=== PATIENT | female | born 1970 | race Caucasian/White ===

== ENCOUNTER → 2016-07-01 | Outpatient (CLI) | payer OTHER ==
--- NOTE | 2016-07-02 08:38 | WOMENS IMAGING REPORT ---
EXAM DESCRIPTION: BILAT SCREENING MAMMO W/CAD COMPLETED DATE/TIME: 07/01/2016 9:39 am REASON FOR STUDY: Z12.31 ROUTINE SCREENING MAMMO Z12.31 ENCNTR SCREEN MAMMOGRAM FOR MALIGNANT NEOPL ASM OF PREETHI COMPARISON: Multiple since 2010 TECHNIQUE: Standard craniocaudal and mediolateral oblique views of each breast recorded using 1006.tva l acquisition. LIMITATIONS: None. FINDINGS: No masses, calcifications or architectural distortion. No areas of suspicion. Read with the assistance of CAD. .[facility] - R2 Cenova Version 1.3 .[facility] - R2 Cenova Version 1.3 .[facility] - R2 Cenova Version 2.4 .[facility] [place] - R2 Cenova Version 2.4 .[facility] - R2 Forging Operator Version 9.2 BREAST DENSITY: c. The breasts are heterogeneously dense, which may obscure small masses. BIRAD: 1 NEGATIVE RECOMMENDATION: ROUTINE SCREENING COMMENT: PATIENT NOTIFIED BY LETTER. The [employer] recommends an annual screening mammogram for women aged 40 years or over. Each patient will receive a reminder prior to the anniversary date of her mammogram. The [employer] (ACR) has developed recommendations for screening MRI of the breast s in certain patient populations, to be used in conjunction with mammography. Breast MRI surveillanc e may be appropriate for women with more than 20% lifetime risk of developing breast cancer as deter mined by genetic testing, significant family history of the disease, or history of mantle radiation f or Hodgkins Disease. ACR Practice Guidelines 2008. TECHNICAL DOCUMENTATION: FINDING NUMBER: (1) ASSESSMENT: (1) JOB ID: [id number]- All Rights Reserved
== END ==
LOC: WI 09:04
PROVIDERS: ATTEND Obstetrics & Gynecology Gynecology
DX: Z12.31 Encounter for screening mammogram for malignant neoplasm of breast (principal)
CPT/HCPCS: 77067; G0202

== ENCOUNTER → 2017-07-02 | Outpatient (CLI) | payer OTHER ==
--- NOTE | 2017-07-03 07:47 | WOMENS IMAGING REPORT ---
EXAM DESCRIPTION: 3D SCREENING MAMMO BILAT COMPLETED DATE/TIME: 07/02/2017 10:05 am REASON FOR STUDY: ROUTINE SCREENING; Z12.31 Z12.31 ENCNTR SCREEN MAMMOGRAM FOR MALIGNANT NEOPLASM O F PREETHI COMPARISON: Multiple since 2010 TECHNIQUE: Standard craniocaudal and mediolateral oblique views of each breast recorded using digita l acquisition and breast tomosynthesis. LIMITATIONS: None. FINDINGS: No masses, calcifications or architectural distortion. No areas of suspicion. Read with the assistance of CAD. .[facility] - R2 Cenova Version 1.3 .[facility] Imaging - R2 Cenova Version 1.3 .[facility] - R2 Cenova Version 2.4 .[facility] R2 Cenova Version 2.4 .[facility] - R2 Casting Machine Operator Automatic Version 9.2 IMPRESSION: NORMAL MAMMOGRAM. BIRADS 1. BREAST DENSITY: c. The breasts are heterogeneously dense, which may obscure small masses. BIRAD: 1 NEGATIVE RECOMMENDATION: ROUTINE SCREENING COMMENT: The patient has been notified of the results by letter per SA requirements. Additional no tification policies are in place for contacting patient with suspicious or incomplete findings. Quality ID #[id number]: The [employer] recommends an annual screening mammogram for women aged 40 years or over. This facility utilizes a reminder system to ensure that all patients receive reminder letters, and/or direct phone calls for appointments. This includes reminders for routine scr eening mammograms, diagnostic mammograms, or other Breast Imaging Interventions when appropriate. Th is patient will be placed in the appropriate reminder system. The [employer] (ACR) has developed recommendations for screening MRI of the breast s in certain patient populations, to be used in conjunction with mammography. Breast MRI surveillanc e may be appropriate for women with more than 20% lifetime risk of developing breast cancer as deter mined by genetic testing, significant family history of the disease, or history of mantle radiation f or Hodgkins Disease. ACR Practice Guidelines 2008. DBT Technology DBT is a type of tomographic mammography. With conventional mammography, overlapping breast tissue ma y make lesions difficult to detect, even with good compression. DBT uses an x-ray tube that rotates a round the breast, taking images at different angles. These images are then combined to create thin sl ices of the breast that the radiologist can view as a 3D reconstruction. The [employer] unit can perform full-field digital mammograms (2D imaging); or DBT (3D imaging); or both, in a combination mode that quickly performs both the mammogram and the tomosynthesis scan while the breast is still compressed. PQRS 6045F: Fluoroscopic imaging is not utilized for breast tomosynthesis. TECHNICAL DOCUMENTATION: FINDING NUMBER: (1) ASSESSMENT: (1) JOB ID: [id number] [employer]- All Rights Reserved
== END ==
LOC: WI 09:48
PROVIDERS: ATTEND Obstetrics & Gynecology Gynecology
DX: Z12.31 Encounter for screening mammogram for malignant neoplasm of breast (principal)
CPT/HCPCS: 77063; 77067

== ENCOUNTER 2019-03-12 03:54 | Inpatient (IN) | payer OTHER ==
[2019-03-12] MEDS ORDERED: ONDANSETRON HCL INJ/PF 4 MG/2 ML SDV ONE ×2 (05:00→06:52)
[2019-03-12] MEDS ORDERED: DEXAMETHASONE SOD PHOSPHATE INJ 4 MG/1 ML VIAL ONE (05:00)
[2019-03-12] MEDS ORDERED: NEOSTIGMINE METHYLSULFATE 10 MG/10 ML VIAL ONE (05:00)
[2019-03-12] MEDS ORDERED: ROCURONIUM BROMIDE INJ 50 MG/5 ML VIAL IV ONE (05:00)
[2019-03-12] MEDS ORDERED: GLYCOPYRROLATE INJ 0.4 MG/2 ML VIAL ONE (05:00)
[2019-03-12] MEDS ORDERED: METOCLOPRAMIDE HCL INJ/PF 10 MG/2 ML SDV ONE (05:00)
[2019-03-12] MEDS ORDERED: SUCCINYLCHOLINE CHLORIDE INJ 200 MG/10 ML VIAL ONE (05:00)
[2019-03-12 05:15] LABS: APPEARANCE,URINE TURBID; BILIRUBIN,URINE NEGATIVE (NEGATIVE); COLOR,URINE AMBER; GLUCOSE, URINE NEGATIVE (NEGATIVE); KETONES,URINE 80 mg/dL (NEGATIVE); LEUKOCYTE ESTERASE,URINE NEGATIVE (NEGATIVE); NITRITE,URINE NEGATIVE (NEGATIVE); PROTEIN,URINE NEGATIVE (NEGATIVE); URINE SPECIFIC GRAVITY 1.025
[2019-03-12 05:36] LABS: HEMOGLOBIN 14.3 g/dL (12.0-15.5); MEAN CORPUSCULAR HEMOGLOBIN 28.7 pg (27.0-33.4); MEAN CORPUSCULAR HGB CONC 33.3 g/dL (32.0-36.0); MEAN CORPUSCULAR VOLUME 86 fl (80-97); PLATELET COUNT 294 10^3/uL (150-450); RED BLOOD COUNT 4.99 10^6/uL (3.72-5.28); RED CELL DISTRIBUTION WIDTH 13.9 % (11.5-14.0)
[2019-03-12 05:51] LABS: ALBUMIN 4.7 g/dL (3.5-5.0); ALKALINE PHOSPHATASE 97 U/L (38-126); ANION GAP 13 (5-19); ASPARTATE AMINO TRANSFERASE 23 U/L (14-36); BILIRUBIN,DIRECT 0.3 mg/dL (0.0-0.4); BILIRUBIN,TOTAL 0.7 mg/dL (0.2-1.3); BLOOD UREA NITROGEN 8 mg/dL (7-20); CARBON DIOXIDE 22 mmol/L (22-30); CHLORIDE 101 mmol/L (98-107); GLUCOSE 132 mg/dL (75-110); TOTAL PROTEIN 8.5 g/dL (6.3-8.2)
[2019-03-12 06:20] LABS: ABSOLUTE LYMPHOCYTES# (MANUAL) 3.4 10^3/uL (0.5-4.7); ABSOLUTE MONOCYTES # (MANUAL) 0.4 10^3/uL (0.1-1.4); BASOPHILS % (MANUAL) 0 % (0-2); EOSINOPHILS % (MANUAL) 0 % (0-6); LYMPHOCYTES % (MANUAL) 16 % (13-45); MONOCYTES % (MANUAL) 2 % (3-13); SEGMENTED NEUTROPHILS % (MAN) 81 % (42-78); TOTAL CELLS COUNTED 100
[2019-03-12 06:21] LABS: PLATELET COMMENT ADEQUATE; PLATELET LARGE PRESENT
--- NOTE | 2019-03-12 06:21 | ER Document Report ---
ED General - General Chief Complaint: Abdominal Pain Stated Complaint: ABDOMINAL PAIN Time Seen by Provider: 03/12/19 06:21 Primary Care Provider: TYSHAWN NASH FNP [Primary Care Provider] - Follow up as needed TRAVEL OUTSIDE OF THE [place] IN LAST 30 DAYS: No - HPI Patient complains to provider of: Abdominal Pain Notes: Normally healthy 49-year-old female presents with 10/10 umbilical pain starting about 2 days ago getting worse and worse. Pain is no radiation nothing makes it better or worse. Patient denies any emesis is mildly nauseous from the pain. Patient had a normal bowel movement yesterday which is normal for her. Patient denies any trauma to her abdomen, fever chills or cough. Patient has decreased oral intake today secondary to pain and not feeling well. Denies any sick contacts. - Related Data Allergies/Adverse Reactions: No Known Allergies Allergy (Unverified 03/12/19 06:50) Past Medical History - Social History Smoking Status: Never Smoker Chew tobacco use (# tins/day): No Frequency of alcohol use: None Drug Abuse: Marijuana Family History: None Patient has suicidal ideation: No Patient has homicidal ideation: No Review of Systems - Review of Systems Notes: REVIEW OF SYSTEMS: CONSTITUTIONAL: -fevers, -chills EENT: -eye pain, -difficulty swallowing, -nasal congestion CARDIOVASCULAR: -chest pain, -syncope. RESPIRATORY: -cough, -SOB GASTROINTESTINAL: positve abdominal pain, positive nausea, -vomiting, -diarrhea GENITOURINARY: -dysuria, -hematuria MUSCULOSKELETAL: -back pain, -neck pain SKIN: -rash or skin lesions. HEMATOLOGIC: -easy bruising or bleeding. LYMPHATIC: -swollen, enlarged glands. NEUROLOGICAL: -altered mental status or loss of consciousness, -headache, - neurologic symptoms PSYCHIATRIC: -anxiety, -depression. ALL OTHER SYSTEMS REVIEWED AND NEGATIVE. Physical Exam - Notes Notes: PHYSICAL EXAMINATION: GENERAL: Well-appearing, well-nourished and in no acute distress. HEAD: Atraumatic, normocephalic. EYES: Pupils equal round and reactive to light, extraocular movements intact, sclera anicteric, conjunctiva are normal. ENT: nares patent, oropharynx clear without exudates. Moist mucous membranes. NECK: Normal range of motion, supple without lymphadenopathy LUNGS: Breath sounds clear to auscultation bilaterally and equal. No wheezes rales or rhonchi. HEART: Regular rate and rhythm without murmurs ABDOMEN: Diffusely tender abdomen. focal tenderness RLQ Normal bowel sounds. EXTREMITIES: Normal range of motion, no pitting or edema. No cyanosis. NEUROLOGICAL: Cranial nerves grossly intact. Normal speech, normal gait. Normal sensory and motor exams. PSYCH: Normal mood, normal affect. SKIN: Warm, Dry, normal turgor, no rashes or lesions noted. Course - Re-evaluation Re-evalutation: 03/12/19 08:30 49-year-old female presents in severe acute distress with lower abdominal pain. Patient generally sore throat lower abdomen. Patient has profound leukocytosis. Patient given ample fluid resuscitation and multiple rounds of IV opioid pain medicine. Antiemetics. Patient's CAT scan abdomen pelvis finds acute appendicitis with a enlarged appendix. No perforation noted. Prescription results were called to me by james quintanilla. Patient started on broad-spectrum antibiotics. Consult surgery. Patient will be admitted to the hospital for further management. - Laboratory Result Diagrams: 03/12/19 05:14 03/12/19 05:14 Laboratory results interpreted by me: 03/12/19 03/12/19 03/12/19 04:04 05:14 05:14 WBC 20.0 H Seg Neuts % (Manual) 81 H Monocytes % (Manual) 2 L Abs Neuts (Manual) 16.2 H Sodium 136.0 L Glucose 132 H Total Protein 8.5 H Urine Ketones 80 H Urine Urobilinogen 4.0 H Discharge - Discharge Clinical Impression: Appendicitis Qualifiers: Appendicitis type: acute appendicitis Acute appendicitis type: with localized peritonitis Appendicitis gangrene presence: without gangrene Appendicitis perforation presence: without perforation Appendicitis abscess presence: without abscess Qualified Code(s): K35.30 - Acute appendicitis with localized peritonitis, without perforation or gangrene Condition: Serious Disposition: ADMITTED INPATIENT Admitting Provider: Surgicalist Unit Admitted: Surgical Floor Referrals: TYSHAWN NASH FNP [Primary Care Provider] - Follow up as needed
[2019-03-12] MEDS ORDERED: NORMAL SALINE 1000 ML 1,000 ML IV ONE (06:25)
[2019-03-12] MEDS ORDERED: HYDROMORPHONE HCL INJ/PF 2 MG/ML AMPULE IV ONE ×3 (06:25→17:00)
[2019-03-12] MEDS ORDERED: ONDANSETRON HCL INJ/PF 4 MG/2 ML SDV IV ONE (06:52)
[2019-03-12] MEDS ORDERED: METRONIDAZOLE RTU 500 MG/NS 100 ML IV ONE (08:25)
--- NOTE | 2019-03-12 08:36 | RADIOLOGY REPORT (SQ) ---
EXAM DESCRIPTION: CT ABD/PELVIS WITH IV ONLY COMPLETED DATE/TIME: 03/12/2019 8:15 am REASON FOR STUDY: abdominal pain after moving furniture on friday and friday COMPARISON: None. TECHNIQUE: CT scan of the abdomen and pelvis performed using helical scanning technique with dynamic intravenous contrast injection. No oral contrast. Images reviewed with lung, soft tissue, and bone windows. Reconstructed coronal and sagittal MPR images reviewed. Delayed images for evaluation of the urinary system also acquired. All images stored on PACS. All CT scanners at this facility use dose modulation, iterative reconstruction, and/or weight based d osing when appropriate to reduce radiation dose to as low as reasonably achievable (ALARA). [facility]: Dose Right [facility]: CareDose [facility]: Dose Right [facility]: Teradose 4D [facility]: REach CONTRAST TYPE AND DOSE: contrast/concentration: Isovue 350.00 mg/ml; Total Contrast Delivered: 90.0 ml; Total Saline Delivered: 60.4 ml RENAL FUNCTION: None required. The patient is less than 50 years old. RADIATION DOSE: CT Rad equipment meets quality standard of care and radiation dose reduction techniq ues were employed. CTDIvol: 8.7 - 12.3 mGy. DLP: 1126 mGy-cm.. LIMITATIONS: None. FINDINGS: LOWER CHEST: No significant findings. No nodules or infiltrates. LIVER: Normal size. No masses. No dilated ducts. SPLEEN: Normal size. No focal lesions. PANCREAS: No masses. No significant calcifications. No adjacent inflammation or peripancreatic fluid collections. Pancreatic duct not dilated. GALLBLADDER: No identified stones by CT criteria. No inflammatory changes to suggest cholecystitis. ADRENAL GLANDS: No significant masses or asymmetry. RIGHT KIDNEY AND URETER: No solid masses. No significant calcifications. No hydronephrosis or hyd roureter. LEFT KIDNEY AND URETER: No solid masses. No significant calcifications. No hydronephrosis or hydr oureter. AORTA AND VESSELS: No aneurysm. No dissection. Renal arteries, SMA, celiac without stenosis. RETROPERITONEUM: No retroperitoneal adenopathy, hemorrhage or masses. BOWEL AND PERITONEAL CAVITY: No evidence of intestinal obstruction. . Cecal inflammatory change and dilated appendix as below. No additional focal bowel wall thickening. APPENDIX: The appendix is dilated measuring up to 1.4 cm (series 3, image 70). There is small amount of periappendiceal fluid and adjacent fatty stranding. There is a appendicolith at the base of the appendix (series 3, image 62). PELVIS: No mass. No free fluid. Normal bladder. ABDOMINAL WALL: No masses. No hernias. BONES: No significant or acute findings. OTHER: No acute bony abnormality. No suspicious osseous lesions. IMPRESSION: Findings compatible with acute appendicitis. No carleen perforation although appendix is markedly dilated (1.4 cm) with small amount of para appendiceal fluid. Pertinent positive or negative findings of the imaging study reported as a CRITICAL EXAM to PRATIMA BACH DO at08:22 on 03/12/2019. Category of Critical Exam: Acute appendicitis TECHNICAL DOCUMENTATION: JOB ID: [id number] Quality ID # [id number]: Final reports with documentation of one or more dose reduction techniques (e.g., Au tomated exposure control, adjustment of the mA and/or kV according to patient size, use of iterative reconstruction technique) 2010 [employer]- All Rights Reserved Reading location - IP/workstation name: [email or web address]
[2019-03-12] MEDS ORDERED: CEFEPIME 2 GM/D5W RTU 2 GM/50 ML RTUPB IV SCH (10:00)
[2019-03-12] MEDS: MORPHINE SULFATE 10 MG/ML INJ IV PRN ×3 (12:03→19:34)
[2019-03-12] MEDS: ONDANSETRON 4 MG TAB.RAPDIS PO PRN (12:03)
--- NOTE | 2019-03-12 13:55 | PDOC H&P ---
History of Present Illness Admission Date/PCP: 03/12/19 08:38 KATHY BANSAL History of Present Illness: ALMITA EDOUARD is a 49 year old female presents with 03/11 umbilical pain star ting about 2 days ago getting worse and worse. Pain is no radiation nothing makes it better or worse. Patient denies any emesis is mildly nauseous from the pain. Patient had a normal bowel movement yesterday which is normal for her. Patient denies any trauma to her abdomen, fever chills or cough. Patient has decreased oral intake today secondary to pain and not feeling well. Denies any sick contacts. Social History Smoking Status: Never Smoker Electronic Cigarette use?: No - Advance Directive Resuscitation Status: Full Code Family History Family History: None Parental Family History Reviewed: No Children Family History Reviewed: NA Sibling(s) Family History Reviewed.: NA Medication/Allergy Home Medications: Levonorgestrel-Ethin Estradiol [Larissia-28 Tablet] 1 tab PO DAILY 03/12/19 Nadolol [Corgard 40 mg Tablet] 40 mg PO DAILY 03/12/19 Omeprazole 20 mg PO DAILY 03/12/19 Allergies/Adverse Reactions: No Known Allergies Allergy (Unverified 03/12/19 06:50) Review of Systems Constitutional: PRESENT: anorexia Eyes: ABSENT: as per HPI, visual disturbances, other Ears: ABSENT: as per HPI, hearing changes, other Nose, Mouth, and Throat: ABSENT: as per HPI, headache(s), mouth pain, sore throat, vertigo, other Breasts: ABSENT: as per HPI, other Cardiovascular: ABSENT: as per HPI, chest pain, dyspnea on exertion, edema, orthropnea, palpitations, other Respiratory: ABSENT: as per HPI, cough, dyspnea, hemoptysis, sputum, other Genitourinary: PRESENT: as per HPI Integumentary: ABSENT: as per HPI, diaphoresis, erythema, lesions, pruritus, kris h, wounds, other Neurological: ABSENT: as per HPI, abnormal gait, abnormal movements, abnormal speech, confusion, convulsions, dizziness, focal weakness, frequent falls, lack of coordination, memory loss, numbness, paresthesias, restless legs, syncope, tingling, tremor(s), vertigo, weakness, other Psychiatric: ABSENT: as per HPI, anxiety, depression, hallucinations, homidical ideation, suicidal ideation, other Endocrine: ABSENT: as per HPI, cold intolerance, flushing, heat intolerance, menstrual abnormalities, polydipsia, polyphagia, polyuria, other Hematologic/Lymphatic: ABSENT: as per HPI, easy bleeding, easy bruising, lymphadenopathy, other Allergic/Immunologic: ABSENT: as per HPI, seasonal rhinorrhea, other Physical Exam Vital Signs: Temp Pulse Resp BP Pulse Ox 97.2 F 68 16 129/77 H 99 03/12/19 10:28 03/12/19 10:28 03/12/19 10:28 03/12/19 10:28 03/12/19 10:28 Intake & Output 03/11/19 03/12/19 03/13/19 06:59 06:59 06:59 Intake Total 1050 Balance 1050 Weight 77.3 kg General appearance: PRESENT: mild distress Head exam: PRESENT: normocephalic Eye exam: PRESENT: EOMI Ear exam: PRESENT: normal external ear exam Mouth exam: PRESENT: moist Neck exam: PRESENT: full ROM Respiratory exam: PRESENT: clear to auscultation berta Cardiovascular exam: PRESENT: RRR Pulses: PRESENT: +2 pedal pulses bilateral GI/Abdominal exam: PRESENT: guarding - in rlq, rebound, other Rectal exam: PRESENT: deferred Extremities exam: PRESENT: full ROM Musculoskeletal exam: PRESENT: full ROM Neurological exam: PRESENT: alert, awake, oriented to person, oriented to place Psychiatric exam: PRESENT: anxious Skin exam: PRESENT: dry Results Laboratory Results: 03/12/19 05:14 03/12/19 05:14 03/12/19 03/12/19 03/12/19 04:04 05:14 05:14 WBC 20.0 H RBC 4.99 Hgb 14.3 Hct 43.0 MCV 86 MCH 28.7 MCHC 33.3 RDW 13.9 Plt Count 294 Seg Neutrophils % Not Reportable Sodium 136.0 L Potassium 4.0 Chloride 101 Carbon Dioxide 22 Anion Gap 13 BUN 8 Creatinine 0.54 Est GFR ( Amer) > 60 Glucose 132 H Calcium 10.0 Total Bilirubin 0.7 AST 23 Alkaline Phosphatase 97 Total Protein 8.5 H Albumin 4.7 Lipase 69.3 Urine Color BRAD Urine Appearance TURBID Urine pH 5.0 Ur Specific [place] 1.025 Urine Protein NEGATIVE Urine Glucose (UA) NEGATIVE Urine Ketones 80 H Urine Blood NEGATIVE Urine Nitrite NEGATIVE Ur Leukocyte Esterase NEGATIVE Urine WBC (Auto) 4 Impressions: Abdomen/Pelvis CT 03/12/19 06:25 IMPRESSION: Findings compatible with acute appendicitis. No carleen perforation although appendix is markedly dilated (1.4 cm) with small amount of para appendiceal fluid. Pertinent positive or negative findings of the imaging study reported as a CRITICAL EXAM to PRATIMA BACH DO at08:22 on 03/12/2019. Category of Critical Exam: Acute appendicitis Assessment & Plan - Inpatient Certification Medical Necessity: Need For IV Fluids, Need for Surgery - Plan Summary Plan Summary: acute appendicitis iwth poss early perforation plan admit for iv abx and surgery risks of laparosocpic appendectomy discussed with pt incluilding injury to adacent organs, infection need for additional surgery mi, stroke, pneumonia, poss related to surgery or anesthesia discussed and she agrees to proceed.
[2019-03-12] MEDS: POTASSI CL 20 MEQ/1/2NS 1L 1000 ML IV PRN (14:15)
[2019-03-12] MEDS: ONDANSETRON HCL INJ/PF 4 MG/2 ML SDV IV PRN (16:06)
[2019-03-12] MEDS ORDERED: BUPIVACAINE HCL 0.5%-EPI 1:200000 INJ/PF 30 ML VIAL ONE (19:00)
[2019-03-12] MEDS: CEFEPIME 2 GM/D5W RTU 2 GM/50 ML RTUPB IV SCH (22:00)
[2019-03-12] MEDS ORDERED: FENTANYL CITRATE INJ/PF 100 MCG/2 ML AMPUL ONE (22:53)
[2019-03-12] MEDS ORDERED: MIDAZOLAM 2 MG/2 ML INJ ONE (22:54)
[2019-03-12] MEDS ORDERED: PROPOFOL INJ 200 MG/20 ML VIAL IV ONE (22:54)
[2019-03-12] MEDS ORDERED: PROMETHAZINE HCL INJ 25 MG/1 ML VIAL ONE (23:07)
[2019-03-13] MEDS ORDERED: DIPHENHYDRAMINE HCL 50 MG/ML VIAL IV PRN (00:57)
[2019-03-13] MEDS ORDERED: MEPERIDINE HCL/PF INJ 25 MG/1 ML DISP.SYRIN IV PRN (00:57)
[2019-03-13] MEDS ORDERED: FENTANYL CITRATE INJ/PF 100 MCG/2 ML AMPUL IV PRN ×3 (00:57)
[2019-03-13] MEDS ORDERED: PROMETHAZINE HCL INJ 25 MG/1 ML VIAL IV PRN ×2 (00:57)
[2019-03-13] MEDS ORDERED: MORPHINE SULFATE 10 MG/ML INJ IV PRN (00:57)
[2019-03-13] MEDS ORDERED: BUPIVACAINE HCL 0.5%-EPI 1:200000 INJ/PF 30 ML VIAL INJ ONE (01:39)
--- NOTE | 2019-03-13 02:08 | Operative Report ---
Nonrecallable Operative Report DATE OF SURGERY: 03/13/19 PREOPERATIVE DIAGNOSIS: acute appendicitis POSTOPERATIVE DIAGNOSIS: perforated appendicitis OPERATION: laparoscopic appendectomy SURGEON: DASHA SCHAFFER ANESTHESIA: GA TISSUE REMOVED OR ALTERED: appendix COMPLICATIONS: none ESTIMATED BLOOD LOSS: 10cc INTRAOPERATIVE FINDINGS: perforated feculent appendicitis PROCEDURE: Patient was brought to the operating room awake alert in stable condition placed in the operative table supine position induced under general anesthesia and intubated After appropriate timeout and site verification the varies needle was placed into the umbilicus and the abdomen was insufflated with 6 L of CO2 gas a supraumbilical 5 mm cyst was made with a 15 blade and a 5 mm port placed in the abdominal cavity intra-abdominal visualization revealed no evidence of Veress needle or trocar injury left lower quadrant 12 mm port was placed under direct vision and left-sided 5 mm port also under direct vision visualization of the right lower quadrant revealed multiple small bowel loops adhesed to the anterior abdominal wall with fibrinous exudate there is also a number of small bowel loops adherent to the cecum as well as the appendix that was adherent to the right lateral wall with fibrinous exudate and obvious stool leakage from a perforation. We first suctioned free of all the peritoneal soilage and the pelvic fluid then irrigated copiously with normal saline in the pelvis in the right lower quadrant. We then gently mobilized the small bowel away from the anterior abdominal wall, it easily fell away. We then able to deliver the appendix from the right lateral abdominal wall with blunt dissection lifted up and identified the mesoappendix. There is stool leaking from the base of the appendix on the cecum. We came across the mesoappendix with one firing of the Endo ELIZABETH stapler with a vascular that came across the base the appendix on the cecum with one firing the Endo ELIZABETH stapler with a blue load. Staple line was checked for integrity manipulated the cecum was compressed to see if there is any leak from the staple line there was none. The appendix was placed in Endobag and removed to the left lower quadrant port site the right lower quadrant and pelvis were copiously irrigated with normal saline suctioned dry when we had good evidence of clear fluid fluid and there was no further cloudy peritoneal fluid, the hemostasis was intact we then reduce the pneumoperitoneum remove the ports but closed the 10 mm fascial defect in the left lower quadrant with 0 Vicryl in the fashion and closed all 3 skin incisions with intracuticular 4-0 Monocryl Steri-Strips completed the procedure estimated blood loss was less than 10 cc sponge needle counts were correct x2 the patient was then awakened in the operating explained transferred recovery stable condition no complications.
[2019-03-13] MEDS: POTASSI CL 20 MEQ/1/2NS 1L 1000 ML IV PRN ×3 (02:59→21:02)
[2019-03-13] MEDS: MORPHINE SULFATE 10 MG/ML INJ IV PRN ×4 (03:12→10:36)
[2019-03-13] MEDS: CEFEPIME 2 GM/D5W RTU 2 GM/50 ML RTUPB IV SCH ×2 (10:24→21:09)
[2019-03-13] MEDS: HYDROMORPHONE HCL INJ/PF 2 MG/ML AMPULE IV PRN ×2 (12:58→21:07)
[2019-03-13] MEDS: KETOROLAC TROMETHAMINE INJ/PF 30 MG/1 ML SDV IV SCH ×2 (13:30→21:05)
[2019-03-13] MEDS: ACETAMINOPHEN 1,000 MG/100 ML RTUPB IV PRN (13:31)
[2019-03-13] MEDS: ONDANSETRON HCL INJ/PF 4 MG/2 ML SDV IV PRN (17:35)
--- NOTE | 2019-03-13 17:51 | PDOC PROGRESS REPORT ---
Subjective Progress Note for:: 03/13/19 Reason For Visit: APPENDICITIS Physical Exam Vital Signs: Temp Pulse Resp BP Pulse Ox 99.2 F 96 17 122/79 95 03/13/19 11:55 03/13/19 11:55 03/13/19 11:55 03/13/19 11:55 03/13/19 11:55 Intake & Output 03/12/19 03/13/19 03/14/19 06:59 06:59 06:59 Intake Total 1200 2210 50 Output Total 100 Balance 1200 2110 50 Weight 77.2 kg Results Laboratory Results: 03/12/19 05:14 03/12/19 05:14 Impressions: Abdomen/Pelvis CT 03/12/19 06:25 IMPRESSION: Findings compatible with acute appendicitis. No carleen perforation although appendix is markedly dilated (1.4 cm) with small amount of para appendiceal fluid. Pertinent positive or negative findings of the imaging study reported as a CRITICAL EXAM to PRATIMA BACH DO at08:22 on 03/12/2019. Category of Critical Exam: Acute appendicitis Assessment & Plan - Diagnosis (1) Perforated appendicitis Is this a current diagnosis for this admission?: Yes - Time Time Spent with patient: Less than 15 minutes - Plan Summary Plan Summary: This is a 49-year-old female status post laparoscopic appendectomy for perforated appendicitis. The patient continues to complain of pain and intermittent nausea. I will add Toradol and IV acetaminophen to her medication regimen to assist with pain control. I will change her from morphine to Dilaudid in an effort to decrease the frequency of narcotic administration. The patient, per report, had a large amount of intra-abdominal contamination. Continue antibiotics until white blood cell count is normal and fevers are gone. Out of bed today. Incentive spirometer. Repeat labs tomorrow.
[2019-03-13] MEDS: FAMOTIDINE INJ/PF 20 MG/2 ML SDV IV SCH (21:05)
[2019-03-14] MEDS: ONDANSETRON HCL INJ/PF 4 MG/2 ML SDV IV PRN ×3 (01:41→15:28)
[2019-03-14 05:21] LABS: ABSOLUTE BASOPHILS # (AUTO) 0.1 10^3/uL (0.0-0.2); ABSOLUTE LYMPHOCYTES (AUTO) 1.5 10^3/uL (0.5-4.7); ABSOLUTE MONOCYTES (AUTO) 1.3 10^3/uL (0.1-1.4); ABSOLUTE NEUT (AUTO) 16.9 10^3/uL (1.7-8.2); BASOPHILS % (AUTO) 0.3 % (0-2); EOSINOPHILS % (AUTO) 0.1 % (0-6); HEMATOCRIT 38.4 % (36.0-47.0); HEMOGLOBIN 12.7 g/dL (12.0-15.5); LYMPHOCYTES % (AUTO) 7.5 % (13-45); MEAN CORPUSCULAR HEMOGLOBIN 28.5 pg (27.0-33.4); MEAN CORPUSCULAR HGB CONC 33.2 g/dL (32.0-36.0); MEAN CORPUSCULAR VOLUME 86 fl (80-97); MONOCYTES % (AUTO) 6.5 % (3-13); PLATELET COUNT 224 10^3/uL (150-450); RED BLOOD COUNT 4.47 10^6/uL (3.72-5.28); RED CELL DISTRIBUTION WIDTH 14.1 % (11.5-14.0); SEGMENTED NEUTROPHILS % (AUTO) 85.6 % (42-78); TOTAL CELLS COUNTED % (AUTO) 100 %; WHITE BLOOD COUNT 19.7 10^3/uL (4.0-10.5)
[2019-03-14 05:51] LABS: ANION GAP 11 (5-19); BLOOD UREA NITROGEN 11 mg/dL (7-20); CALCIUM 8.9 mg/dL (8.4-10.2); CARBON DIOXIDE 20 mmol/L (22-30); CHLORIDE 103 mmol/L (98-107); GLUCOSE 107 mg/dL (75-110); POTASSIUM 4.2 mmol/L (3.6-5.0)
[2019-03-14] MEDS: KETOROLAC TROMETHAMINE INJ/PF 30 MG/1 ML SDV IV SCH ×3 (06:10→21:28)
[2019-03-14] MEDS: FAMOTIDINE INJ/PF 20 MG/2 ML SDV IV SCH ×2 (09:03→21:27)
[2019-03-14] MEDS: CEFEPIME 2 GM/D5W RTU 2 GM/50 ML RTUPB IV SCH ×2 (09:04→21:28)
[2019-03-14] MEDS: HYDROMORPHONE HCL INJ/PF 2 MG/ML AMPULE IV PRN ×3 (09:11→20:07)
[2019-03-14] MEDS: ACETAMINOPHEN 1,000 MG/100 ML RTUPB IV PRN ×2 (09:15→18:40)
[2019-03-14] MEDS: POTASSI CL 20 MEQ/1/2NS 1L 1000 ML IV PRN ×2 (09:40→18:54)
[2019-03-14] MEDS ORDERED: PROMETHAZINE HCL INJ 25 MG/1 ML VIAL ONE (13:53)
[2019-03-14] MEDS: PROMETHAZINE HCL INJ 25 MG/1 ML VIAL IV PRN (18:40)
[2019-03-14] MEDS: ONDANSETRON 4 MG TAB.RAPDIS PO PRN (20:07)
--- NOTE | 2019-03-14 23:03 | PDOC PROGRESS REPORT ---
Subjective Progress Note for:: 03/14/19 Reason For Visit: APPENDICITIS Physical Exam Vital Signs: Temp Pulse Resp BP Pulse Ox 97.6 F 90 16 137/78 H 96 03/14/19 10:33 03/14/19 10:33 03/14/19 10:33 03/14/19 10:33 03/14/19 10:33 Intake & Output 03/13/19 03/14/19 03/15/19 06:59 06:59 06:59 Intake Total 2210 4103 Output Total 100 1600 Balance 2110 2503 Weight 77.2 kg 83.3 kg Results Laboratory Results: 03/14/19 05:15 03/14/19 05:15 03/14/19 03/14/19 05:15 05:15 WBC 19.7 H RBC 4.47 Hgb 12.7 Hct 38.4 MCV 86 MCH 28.5 MCHC 33.2 RDW 14.1 H Plt Count 224 Seg Neutrophils % 85.6 H Sodium 134.1 L Potassium 4.2 Chloride 103 Carbon Dioxide 20 L Anion Gap 11 BUN 11 Creatinine 0.55 Est GFR ( Amer) > 60 Glucose 107 Calcium 8.9 Impressions: Abdomen/Pelvis CT 03/12/19 06:25 IMPRESSION: Findings compatible with acute appendicitis. No carleen perforation although appendix is markedly dilated (1.4 cm) with small amount of para appe ndiceal fluid. Pertinent positive or negative findings of the imaging study reported as a CRITICAL EXAM to PRATIMA BACH DO at08:22 on 03/12/2019. Category of Critical Exam: Acute appendicitis Assessment & Plan - Diagnosis (1) Perforated appendicitis Is this a current diagnosis for this admission?: Yes - Time Time Spent with patient: 15-24 minutes - Plan Summary Plan Summary: This is a 49-year-old female status post laparoscopic appendectomy for perforated appendicitis. Her pain is better controlled. The patient continues to complain of intermittent nausea and distention. She had one episode of vomiting today. The patient, per report, had a large amount of intra-abdominal contamination. I suspect she has developed a postoperative ileus at this time. Continue antibiotics until white blood cell count is normal and fevers are gone. Out of bed today. Incentive spirometer. Repeat labs tomorrow. If the patient does not see significant improvement in the next several days, repeat CT scan may be warranted.
[2019-03-15] MEDS: PROMETHAZINE HCL INJ 25 MG/1 ML VIAL IV PRN ×4 (03:51→23:27)
[2019-03-15] MEDS: ACETAMINOPHEN 1,000 MG/100 ML RTUPB IV PRN ×3 (03:52→23:23)
[2019-03-15] MEDS: POTASSI CL 20 MEQ/1/2NS 1L 1000 ML IV PRN ×3 (03:52→22:19)
[2019-03-15 04:09] LABS: ABSOLUTE BASOPHILS # (AUTO) 0.1 10^3/uL (0.0-0.2); ABSOLUTE EOSINOPHILS # (AUTO) 0.2 10^3/uL (0.0-0.6); ABSOLUTE LYMPHOCYTES (AUTO) 1.4 10^3/uL (0.5-4.7); ABSOLUTE MONOCYTES (AUTO) 1.4 10^3/uL (0.1-1.4); ABSOLUTE NEUT (AUTO) 15.7 10^3/uL (1.7-8.2); BASOPHILS % (AUTO) 0.3 % (0-2); EOSINOPHILS % (AUTO) 1.2 % (0-6); HEMOGLOBIN 13.1 g/dL (12.0-15.5); LYMPHOCYTES % (AUTO) 7.6 % (13-45); MEAN CORPUSCULAR HEMOGLOBIN 28.3 pg (27.0-33.4); MEAN CORPUSCULAR HGB CONC 32.7 g/dL (32.0-36.0); MEAN CORPUSCULAR VOLUME 87 fl (80-97); MONOCYTES % (AUTO) 7.5 % (3-13); PLATELET COUNT 225 10^3/uL (150-450); RED BLOOD COUNT 4.62 10^6/uL (3.72-5.28); RED CELL DISTRIBUTION WIDTH 14.1 % (11.5-14.0); SEGMENTED NEUTROPHILS % (AUTO) 83.4 % (42-78); TOTAL CELLS COUNTED % (AUTO) 100 %; WHITE BLOOD COUNT 18.8 10^3/uL (4.0-10.5)
[2019-03-15 04:29] LABS: ANION GAP 11 (5-19); BLOOD UREA NITROGEN 12 mg/dL (7-20); CALCIUM 8.6 mg/dL (8.4-10.2); CARBON DIOXIDE 19 mmol/L (22-30); CHLORIDE 104 mmol/L (98-107); GLUCOSE 82 mg/dL (75-110); POTASSIUM 4.5 mmol/L (3.6-5.0)
[2019-03-15] MEDS: KETOROLAC TROMETHAMINE INJ/PF 30 MG/1 ML SDV IV SCH ×3 (05:04→22:10)
--- NOTE | 2019-03-15 09:01 | PDOC PROGRESS REPORT ---
Subjective Progress Note for:: 03/15/19 Subjective:: feels better small amts of flatus Reason For Visit: APPENDICITIS Physical Exam Vital Signs: Temp Pulse Resp BP Pulse Ox 97.8 F 89 16 122/74 96 03/15/19 07:12 03/15/19 07:12 03/15/19 07:12 03/15/19 07:12 03/15/19 07:12 Intake & Output 03/14/19 03/15/19 03/16/19 06:59 06:59 06:59 Intake Total 4103 2400 Output Total 1600 700 Balance 2503 1700 Weight 83.3 kg 84 kg General appearance: PRESENT: no acute distress Head exam: PRESENT: normocephalic Ear exam: PRESENT: normal external ear exam Mouth exam: PRESENT: moist Neck exam: PRESENT: full ROM Respiratory exam: PRESENT: accessory muscle use, clear to auscultation berta Cardiovascular exam: PRESENT: RRR Pulses: PRESENT: normal radial pulses, normal femoral pulses GI/Abdominal exam: PRESENT: soft, tenderness Rectal exam: PRESENT: deferred Extremities exam: PRESENT: full ROM Musculoskeletal exam: PRESENT: full ROM Neurological exam: PRESENT: alert, awake, oriented to person, oriented to place Skin exam: PRESENT: dry Results Laboratory Results: 03/15/19 03:42 03/15/19 03:42 03/15/19 03/15/19 03:42 03:42 WBC 18.8 H RBC 4.62 Hgb 13.1 Hct 40.0 MCV 87 MCH 28.3 MCHC 32.7 RDW 14.1 H Plt Count 225 Seg Neutrophils % 83.4 H Sodium 134.1 L Potassium 4.5 Chloride 104 Carbon Dioxide 19 L Anion Gap 11 BUN 12 Creatinine 0.61 Est GFR ( Amer) > 60 Glucose 82 Calcium 8.6 Impressions: Abdomen/Pelvis CT 03/12/19 06:25 IMPRESSION: Findings compatible with acute appendicitis. No carleen perforation although appendix is markedly dilated (1.4 cm) with small amount of para appendiceal fluid. Pertinent positive or negative findings of the imaging study reported as a CRITICAL EXAM to RPATIMA BACH DO at08:22 on 03/12/2019. Category of Critical Exam: Acute appendicitis Assessment & Plan - Time Time Spent with patient: 25-34 minutes - Plan Summary Plan Summary: s/p perforated appendicitis doing ok passed small amt of flatus this am wbc sl down this am afeb vss cont iv abx clears.
[2019-03-15] MEDS: FAMOTIDINE INJ/PF 20 MG/2 ML SDV IV SCH ×2 (09:36→22:10)
[2019-03-15] MEDS: CEFEPIME 2 GM/D5W RTU 2 GM/50 ML RTUPB IV SCH ×2 (09:36→22:09)
[2019-03-15] MEDS: HYDROMORPHONE HCL INJ/PF 2 MG/ML AMPULE IV PRN ×2 (11:16→20:00)
[2019-03-15] MEDS: ONDANSETRON HCL INJ/PF 4 MG/2 ML SDV IV PRN (17:46)
[2019-03-15] MEDS ORDERED: METOCLOPRAMIDE HCL INJ/PF 10 MG/2 ML SDV IV PRN (18:13)
[2019-03-15] MEDS ORDERED: PROMETHAZINE HCL INJ 25 MG/1 ML VIAL IV PRN (20:01)
[2019-03-15] MEDS ORDERED: ONDANSETRON HCL INJ/PF 4 MG/2 ML SDV IV PRN (20:02)
[2019-03-15] MEDS: METOCLOPRAMIDE HCL INJ/PF 10 MG/2 ML SDV IV PRN (20:21)
[2019-03-15] MEDS: DOCUSATE SODIUM 100 MG CAPSULE PO SCH (22:19)
[2019-03-16] MEDS: METOCLOPRAMIDE HCL INJ/PF 10 MG/2 ML SDV IV PRN ×2 (02:49→10:29)
[2019-03-16] MEDS: HYDROMORPHONE HCL INJ/PF 2 MG/ML AMPULE IV PRN ×5 (02:49→20:31)
[2019-03-16] MEDS: ONDANSETRON HCL INJ/PF 4 MG/2 ML SDV IV PRN ×3 (05:35→20:31)
[2019-03-16] MEDS: KETOROLAC TROMETHAMINE INJ/PF 30 MG/1 ML SDV IV SCH ×3 (05:35→21:09)
[2019-03-16] MEDS: PROMETHAZINE HCL INJ 25 MG/1 ML VIAL IV PRN ×3 (07:45→15:54)
[2019-03-16] MEDS: POTASSI CL 20 MEQ/1/2NS 1L 1000 ML IV PRN ×2 (07:52→21:10)
[2019-03-16] MEDS: FAMOTIDINE INJ/PF 20 MG/2 ML SDV IV SCH ×2 (09:10→21:09)
[2019-03-16] MEDS: DOCUSATE SODIUM 100 MG CAPSULE PO SCH ×2 (09:11→17:09)
[2019-03-16] MEDS: CEFEPIME 2 GM/D5W RTU 2 GM/50 ML RTUPB IV SCH ×2 (09:11→21:10)
[2019-03-16 09:26] LABS: ABSOLUTE BASOPHILS # (AUTO) 0.1 10^3/uL (0.0-0.2); ABSOLUTE EOSINOPHILS # (AUTO) 0.2 10^3/uL (0.0-0.6); ABSOLUTE LYMPHOCYTES (AUTO) 1.7 10^3/uL (0.5-4.7); ABSOLUTE MONOCYTES (AUTO) 1.7 10^3/uL (0.1-1.4); ABSOLUTE NEUT (AUTO) 13.4 10^3/uL (1.7-8.2); BASOPHILS % (AUTO) 0.4 % (0-2); EOSINOPHILS % (AUTO) 0.9 % (0-6); HEMATOCRIT 41.2 % (36.0-47.0); HEMOGLOBIN 13.4 g/dL (12.0-15.5); LYMPHOCYTES % (AUTO) 9.9 % (13-45); MEAN CORPUSCULAR HEMOGLOBIN 28.4 pg (27.0-33.4); MEAN CORPUSCULAR HGB CONC 32.4 g/dL (32.0-36.0); MEAN CORPUSCULAR VOLUME 88 fl (80-97); MONOCYTES % (AUTO) 9.9 % (3-13); PLATELET COUNT 329 10^3/uL (150-450); RED CELL DISTRIBUTION WIDTH 14.6 % (11.5-14.0); SEGMENTED NEUTROPHILS % (AUTO) 78.9 % (42-78); TOTAL CELLS COUNTED % (AUTO) 100 %
[2019-03-16] MEDS: ACETAMINOPHEN 1,000 MG/100 ML RTUPB IV PRN (10:29)
--- NOTE | 2019-03-16 12:36 | RADIOLOGY REPORT (SQ) ---
EXAM DESCRIPTION: CT ABD/PELVIS NO ORAL OR IV COMPLETED DATE/TIME: 03/16/2019 12:17 pm REASON FOR STUDY: s/p perforated appy, r/o fluid collection COMPARISON: 03/12/2019. TECHNIQUE: CT scan of the abdomen and pelvis performed without intravenous or oral contrast. Images reviewed with lung, soft tissue, and bone windows. Reconstructed coronal and sagittal MPR images revi ewed. All images stored on PACS. All CT scanners at this facility use dose modulation, iterative reconstruction, and/or weight based d osing when appropriate to reduce radiation dose to as low as reasonably achievable (ALARA). [facility]: Dose Right [facility]: CareDose [facility]: Dose Right [facility]: Teradose 4D [facility]: [employer] RADIATION DOSE: CT Rad equipment meets quality standard of care and radiation dose reduction techniq ues were employed. CTDIvol: 11.7 mGy. DLP: 731 mGy-cm.mGy. LIMITATIONS: None. FINDINGS: LOWER CHEST: Minimal right pleural effusion. Mild basilar atelectasis. NON-CONTRASTED LIVER, SPLEEN, ADRENALS: Evaluation limited by lack of IV contrast. No identified sign ificant masses. PANCREAS: No masses. No peripancreatic inflammatory changes. GALLBLADDER: No identified stones by CT criteria. No inflammatory changes to suggest cholecystitis. RIGHT KIDNEY AND URETER: No suspicious masses. Assessment limited by lack of IV contrast. No signif icant calcifications. No hydronephrosis or hydroureter. LEFT KIDNEY AND URETER: No suspicious masses. Assessment limited by lack of IV contrast. No signifi cant calcifications. No hydronephrosis or hydroureter. AORTA AND RETROPERITONEUM: No aneurysm. No retroperitoneal masses or adenopathy. BOWEL AND PERITONEAL CAVITY: Dilated small bowel. The distal small bowel and the colon are not diste nded. No obvious masses or inflammatory changes. No free fluid. APPENDIX: Surgically absent. Mild postoperative stranding but no focal fluid collection. There are a few tiny bubbles of free air near the midline. PELVIS, BLADDER, AND ABDOMINAL WALL:No abnormal masses. Small amount of free fluid in the right side of the pelvis. Bladder normal. BONES: No significant findings. OTHER: No other significant finding. IMPRESSION: 1. CHANGES OF RECENT APPENDECTOMY. MILD POSTOPERATIVE STRANDING BUT NO FOCAL FLUID COLLECTION OR SOPHIA DENCE OF LOCALIZED ABSCESS. THERE IS A SMALL AMOUNT OF FREE FLUID IN THE RIGHT SIDE OF THE PELVIS. 2. DIFFUSELY DILATED SMALL BOWEL. THE DISTAL SMALL BOWEL AND COLON ARE NOT DISTENDED. SOMEWHAT CONC ERNING FOR OBSTRUCTION. A FOCAL OBSTRUCTING LESION IS NOT DEMONSTRATED. 3. NO OTHER SIGNIFICANT OR ACUTE PROCESS IN THE ABDOMEN OR PELVIS. COMMENT: Quality ID # [id number]: Final reports with documentation of one or more dose reduction techniques (e.g., Automated exposure control, adjustment of the mA and/or kV according to patient size, use of iterative reconstruction technique) TECHNICAL DOCUMENTATION: JOB ID: [id number] [employer]- All Rights Reserved Reading location - IP/workstation name: [email or web address]
[2019-03-16] MEDS ORDERED: BENZOCAINE/MENTHOL SORE THROAT LOZENGE BUCCAL PRN (17:38)
[2019-03-16] MEDS ORDERED: LIDOCAINE 2% VISCOUS SOLN 20 ML UDCUP PO PRN (18:00)
[2019-03-16] MEDS: PHENOL/SODIUM PHENOLATE 100 SPRAY/177 ML BOTTLE PO PRN ×2 (18:57→21:03)
--- NOTE | 2019-03-16 19:30 | PDOC PROGRESS REPORT ---
Subjective Progress Note for:: 03/16/19 Subjective:: c/o N/V with mild lower abdominal pains Denies flatus Reason For Visit: APPENDICITIS Physical Exam Vital Signs: Temp Pulse Resp BP Pulse Ox 98.5 F 88 16 132/68 H 97 03/16/19 16:00 03/16/19 16:00 03/16/19 16:00 03/16/19 16:00 03/16/19 16:00 Intake & Output 03/15/19 03/16/19 03/17/19 06:59 06:59 06:59 Intake Total 2400 3420 1441 Output Total 700 Balance 1700 3420 1441 Weight 84 kg 84.2 kg Exam: abdomen is soft with mild distention. Incisions are clean and dry. Afebrile Mild tenderness infra-umbilical area Results Laboratory Results: 03/16/19 09:09 03/15/19 03:42 03/16/19 09:09 WBC 17.0 H RBC 4.70 Hgb 13.4 Hct 41.2 MCV 88 MCH 28.4 MCHC 32.4 RDW 14.6 H Plt Count 329 Seg Neutrophils % 78.9 H Impressions: Abdomen/Pelvis CT 03/16/19 00:00 IMPRESSION: 1. CHANGES OF RECENT APPENDECTOMY. MILD POSTOPERATIVE STRANDING BUT NO FOCAL FLUID COLLECTION OR EVIDENCE OF LOCALIZED ABSCESS. THERE IS A SMALL AMOUNT OF FREE FLUID IN THE RIGHT SIDE OF THE PELVIS. 2. DIFFUSELY DILATED SMALL BOWEL. THE DISTAL SMALL BOWEL AND COLON ARE NOT DISTENDED. SOMEWHAT CONCERNING FOR OBSTRUCTION. A FOCAL OBSTRUCTING LESION IS NOT DEMONSTRATED. 3. NO OTHER SIGNIFICANT OR ACUTE PROCESS IN THE ABDOMEN OR PELVIS. Assessment & Plan - Time Time Spent with patient: 15-24 minutes - Inpatient Certification Medical Necessity: Need For IV Fluids, Need for IV Antibiotics - Plan Summary Plan Summary: PO Day #3 post lap appendectomy for perf appendicitis Had CT scan of abdomen today which showed post op changes around appendectomy site. No leak. Has some small bowel dilatation most likely due to ileus. Plan: Continue NPO IV antibiotics Antinausea meds Hydrate
[2019-03-17] MEDS: PROMETHAZINE HCL INJ 25 MG/1 ML VIAL IV PRN ×3 (04:17→20:42)
[2019-03-17] MEDS: KETOROLAC TROMETHAMINE INJ/PF 30 MG/1 ML SDV IV SCH ×3 (06:18→22:06)
[2019-03-17] MEDS: POTASSI CL 20 MEQ/1/2NS 1L 1000 ML IV PRN ×3 (06:18→22:05)
[2019-03-17 07:43] LABS: ABSOLUTE BASOPHILS # (AUTO) 0.1 10^3/uL (0.0-0.2); ABSOLUTE EOSINOPHILS # (AUTO) 0.2 10^3/uL (0.0-0.6); ABSOLUTE LYMPHOCYTES (AUTO) 1.5 10^3/uL (0.5-4.7); ABSOLUTE MONOCYTES (AUTO) 1.5 10^3/uL (0.1-1.4); ABSOLUTE NEUT (AUTO) 10.2 10^3/uL (1.7-8.2); BASOPHILS % (AUTO) 0.7 % (0-2); EOSINOPHILS % (AUTO) 1.6 % (0-6); HEMATOCRIT 37.8 % (36.0-47.0); HEMOGLOBIN 12.6 g/dL (12.0-15.5); LYMPHOCYTES % (AUTO) 10.9 % (13-45); MEAN CORPUSCULAR HEMOGLOBIN 28.7 pg (27.0-33.4); MEAN CORPUSCULAR HGB CONC 33.2 g/dL (32.0-36.0); MEAN CORPUSCULAR VOLUME 86 fl (80-97); MONOCYTES % (AUTO) 10.8 % (3-13); PLATELET COUNT 305 10^3/uL (150-450); RED BLOOD COUNT 4.37 10^6/uL (3.72-5.28); RED CELL DISTRIBUTION WIDTH 14.4 % (11.5-14.0); TOTAL CELLS COUNTED % (AUTO) 100 %; WHITE BLOOD COUNT 13.4 10^3/uL (4.0-10.5)
[2019-03-17 08:05] LABS: ANION GAP 13 (5-19); BLOOD UREA NITROGEN 7 mg/dL (7-20); CALCIUM 8.8 mg/dL (8.4-10.2); CARBON DIOXIDE 19 mmol/L (22-30); CHLORIDE 103 mmol/L (98-107); GLUCOSE 80 mg/dL (75-110); POTASSIUM 4.4 mmol/L (3.6-5.0)
[2019-03-17] MEDS: DOCUSATE SODIUM 100 MG CAPSULE PO SCH ×2 (09:25→18:55)
[2019-03-17] MEDS: FAMOTIDINE INJ/PF 20 MG/2 ML SDV IV SCH ×2 (10:01→22:05)
[2019-03-17] MEDS: CEFEPIME 2 GM/D5W RTU 2 GM/50 ML RTUPB IV SCH ×2 (10:01→22:07)
[2019-03-17] MEDS: HYDROMORPHONE HCL INJ/PF 2 MG/ML AMPULE IV PRN ×2 (11:18→20:42)
--- NOTE | 2019-03-17 11:49 | PDOC PROGRESS REPORT ---
Subjective Progress Note for:: 03/17/19 Subjective:: feels better with ng tube passed small amts of stool today Reason For Visit: APPENDICITIS Physical Exam Vital Signs: Temp Pulse Resp BP Pulse Ox 97.7 F 90 18 137/72 H 95 03/17/19 08:00 03/17/19 08:00 03/17/19 08:00 03/17/19 08:00 03/17/19 08:00 Intake & Output 03/16/19 03/17/19 03/18/19 06:59 06:59 06:59 Intake Total 3420 2891 396 Output Total 1400 Balance 3420 1491 396 Weight 84.2 kg 84.5 kg General appearance: PRESENT: no acute distress, mild distress Head exam: PRESENT: normocephalic Eye exam: PRESENT: EOMI Mouth exam: PRESENT: moist Neck exam: PRESENT: full ROM Respiratory exam: PRESENT: clear to auscultation berta Cardiovascular exam: PRESENT: RRR GI/Abdominal exam: PRESENT: hypoactive bowel sounds, soft Rectal exam: PRESENT: deferred Extremities exam: PRESENT: full ROM Musculoskeletal exam: PRESENT: full ROM Neurological exam: PRESENT: alert, awake, oriented to person, oriented to place Psychiatric exam: PRESENT: anxious Skin exam: PRESENT: dry Results Laboratory Results: 03/17/19 07:16 03/17/19 07:16 03/17/19 03/17/19 07:16 07:16 WBC 13.4 H RBC 4.37 Hgb 12.6 Hct 37.8 MCV 86 MCH 28.7 MCHC 33.2 RDW 14.4 H Plt Count 305 Seg Neutrophils % 76.0 Sodium 134.8 L Potassium 4.4 Chloride 103 Carbon Dioxide 19 L Anion Gap 13 BUN 7 Creatinine 0.55 Est GFR ( Amer) > 60 Glucose 80 Calcium 8.8 03/12/19 11:20 Blood Blood Culture - Final NO GROWTH IN 5 DAYS Impressions: Abdomen/Pelvis CT 03/16/19 00:00 IMPRESSION: 1. CHANGES OF RECENT APPENDECTOMY. MILD POSTOPERATIVE STRANDING BUT NO FOCAL FLUID COLLECTION OR EVIDENCE OF LOCALIZED ABSCESS. THERE IS A SMALL AMOUNT OF FREE FLUID IN THE RIGHT SIDE OF THE PELVIS. 2. DIFFUSELY DILATED SMALL BOWEL. THE DISTAL SMALL BOWEL AND COLON ARE NOT DISTENDED. SOMEWHAT CONCERNING FOR OBSTRUCTION. A FOCAL OBSTRUCTING LESION IS NOT DEMONSTRATED. 3. NO OTHER SIGNIFICANT OR ACUTE PROCESS IN THE ABDOMEN OR PELVIS. Assessment & Plan - Diagnosis (1) Perforated appendicitis Is this a current diagnosis for this admission?: Yes - Time Time Spent with patient: 25-34 minutes - Plan Summary Plan Summary: cont ng for now cont iv and abx awaiting return of bowel funct;ion.
[2019-03-17] MEDS: METOCLOPRAMIDE HCL INJ/PF 10 MG/2 ML SDV IV PRN (14:43)
[2019-03-18] MEDS: KETOROLAC TROMETHAMINE INJ/PF 30 MG/1 ML SDV IV SCH (05:56)
[2019-03-18] MEDS: PROMETHAZINE HCL INJ 25 MG/1 ML VIAL IV PRN ×3 (05:56→18:37)
[2019-03-18] MEDS: POTASSI CL 20 MEQ/1/2NS 1L 1000 ML IV PRN (05:57)
[2019-03-18 08:43] LABS: ABSOLUTE BASOPHILS # (AUTO) 0.1 10^3/uL (0.0-0.2); ABSOLUTE EOSINOPHILS # (AUTO) 0.2 10^3/uL (0.0-0.6); ABSOLUTE LYMPHOCYTES (AUTO) 1.5 10^3/uL (0.5-4.7); ABSOLUTE MONOCYTES (AUTO) 1.5 10^3/uL (0.1-1.4); ABSOLUTE NEUT (AUTO) 10.5 10^3/uL (1.7-8.2); EOSINOPHILS % (AUTO) 1.4 % (0-6); HEMATOCRIT 38.7 % (36.0-47.0); HEMOGLOBIN 12.9 g/dL (12.0-15.5); LYMPHOCYTES % (AUTO) 10.8 % (13-45); MEAN CORPUSCULAR HEMOGLOBIN 28.5 pg (27.0-33.4); MEAN CORPUSCULAR HGB CONC 33.4 g/dL (32.0-36.0); MEAN CORPUSCULAR VOLUME 86 fl (80-97); PLATELET COUNT 336 10^3/uL (150-450); RED BLOOD COUNT 4.52 10^6/uL (3.72-5.28); RED CELL DISTRIBUTION WIDTH 14.3 % (11.5-14.0); SEGMENTED NEUTROPHILS % (AUTO) 75.8 % (42-78); TOTAL CELLS COUNTED % (AUTO) 100 %; WHITE BLOOD COUNT 13.9 10^3/uL (4.0-10.5)
[2019-03-18 09:01] LABS: ANION GAP 16 (5-19); BLOOD UREA NITROGEN 6 mg/dL (7-20); CARBON DIOXIDE 18 mmol/L (22-30); CHLORIDE 102 mmol/L (98-107); GLUCOSE 84 mg/dL (75-110); POTASSIUM 4.5 mmol/L (3.6-5.0)
[2019-03-18 09:54] LABS: C DIFFICILE GDH NEGATIVE (NEGATIVE)
--- NOTE | 2019-03-18 10:24 | PDOC PROGRESS REPORT ---
Subjective Progress Note for:: 03/18/19 Reason For Visit: APPENDICITIS Patient feeling better, had some stool but no flatus. He is walking. Wants to take a shower. Off narcotics. Still on IV antibiotics. Physical Exam Vital Signs: Temp Pulse Resp BP Pulse Ox 98.4 F 97 17 131/69 H 94 03/18/19 08:00 03/18/19 08:00 03/18/19 08:00 03/18/19 08:00 03/18/19 08:00 Intake & Output 03/17/19 03/18/19 03/19/19 06:59 06:59 06:59 Intake Total 2891 2669 Output Total 1400 875 Balance 1491 1794 Weight 84.5 kg 84.6 kg General appearance: PRESENT: no acute distress GI/Abdominal exam: PRESENT: other - The abdomen is soft, completely benign; no peritoneal signs no rigidity; nasogastric tube with primarily the gastric contents with coffee grounds. Results Laboratory Results: 03/18/19 08:10 03/18/19 08:10 03/18/19 03/18/19 08:10 08:10 WBC 13.9 H RBC 4.52 Hgb 12.9 Hct 38.7 MCV 86 MCH 28.5 MCHC 33.4 RDW 14.3 H Plt Count 336 Seg Neutrophils % 75.8 Sodium 135.7 L Potassium 4.5 Chloride 102 Carbon Dioxide 18 L Anion Gap 16 BUN 6 L Creatinine 0.55 Est GFR ( Amer) > 60 Glucose 84 Calcium 9.0 03/12/19 11:20 Blood Blood Culture - Final NO GROWTH IN 5 DAYS Impressions: Abdomen/Pelvis CT 03/16/19 00:00 IMPRESSION: 1. CHANGES OF RECENT APPENDECTOMY. MILD POSTOPERATIVE STRANDING BUT NO FOCAL FLUID COLLECTION OR EVIDENCE OF LOCALIZED ABSCESS. THERE IS A SMALL AMOUNT OF FREE FLUID IN THE RIGHT SIDE OF THE PELVIS. 2. DIFFUSELY DILATED SMALL BOWEL. THE DISTAL SMALL BOWEL AND COLON ARE NOT DISTENDED. SOMEWHAT CONCERNING FOR OBSTRUCTION. A FOCAL OBSTRUCTING LESION IS NOT DEMONSTRATED. 3. NO OTHER SIGNIFICANT OR ACUTE PROCESS IN THE ABDOMEN OR PELVIS. Assessment & Plan - Diagnosis (1) Perforated appendicitis Is this a current diagnosis for this admission?: Yes Plan: Impression: Postoperative day 6 status post a laparoscopic appendectomy, peritoneal washout, doing well, ileus resolving. Recommendations: 1. We will clamp NG tube; if tolerates well, consider removal 2. Shower 3. Questions answered to patient and son satisfaction - Time Time Spent with patient: 15-24 minutes Medications reviewed and adjusted accordingly: Yes Anticipated discharge: Home
[2019-03-18] MEDS: CEFEPIME 2 GM/D5W RTU 2 GM/50 ML RTUPB IV SCH ×2 (11:14→21:40)
[2019-03-18] MEDS: FAMOTIDINE INJ/PF 20 MG/2 ML SDV IV SCH ×2 (11:15→21:40)
[2019-03-18] MEDS: DOCUSATE SODIUM 100 MG CAPSULE PO SCH ×2 (11:15→17:54)
[2019-03-18] MEDS: HYDROMORPHONE HCL INJ/PF 2 MG/ML AMPULE IV PRN ×2 (11:24→22:38)
[2019-03-18] MEDS: KETOROLAC TROMETHAMINE INJ/PF 30 MG/1 ML SDV IV PRN (18:32)
[2019-03-18] MEDS: VALACYCLOVIR HCL 500 MG TABLET PO SCH (21:41)
[2019-03-18] MEDS: METOCLOPRAMIDE HCL INJ/PF 10 MG/2 ML SDV IV PRN (21:45)
[2019-03-18] MEDS ORDERED: ACYCLOVIR SODIUM IV SCH (22:00)
[2019-03-18] MEDS ORDERED: NORMAL SALINE IV SCH (22:00)
[2019-03-19] MEDS: POTASSI CL 20 MEQ/1/2NS 1L 1000 ML IV PRN ×2 (05:51→23:32)
[2019-03-19] MEDS: KETOROLAC TROMETHAMINE INJ/PF 30 MG/1 ML SDV IV PRN ×2 (05:52→17:01)
[2019-03-19] MEDS: ONDANSETRON HCL INJ/PF 4 MG/2 ML SDV IV PRN (05:52)
[2019-03-19] MEDS: DOCUSATE SODIUM 100 MG CAPSULE PO SCH ×2 (10:01→17:01)
[2019-03-19] MEDS: VALACYCLOVIR HCL 500 MG TABLET PO SCH ×2 (10:02→21:11)
[2019-03-19] MEDS: CEFEPIME 2 GM/D5W RTU 2 GM/50 ML RTUPB IV SCH (10:06)
[2019-03-19] MEDS: FAMOTIDINE INJ/PF 20 MG/2 ML SDV IV SCH ×2 (10:06→21:11)
[2019-03-19] MEDS: PROMETHAZINE HCL INJ 25 MG/1 ML VIAL IV PRN ×2 (11:25→19:43)
[2019-03-19] MEDS: HYDROMORPHONE HCL INJ/PF 2 MG/ML AMPULE IV PRN ×2 (11:26→19:43)
--- NOTE | 2019-03-19 11:35 | PDOC PROGRESS REPORT ---
Subjective Progress Note for:: 03/19/19 Subjective:: Has BM and flatus Reason For Visit: APPENDICITIS Physical Exam Vital Signs: Temp Pulse Resp BP Pulse Ox 98.0 F 93 18 120/73 97 03/19/19 07:51 03/19/19 07:51 03/19/19 07:51 03/19/19 07:51 03/19/19 07:51 Intake & Output 03/18/19 03/19/19 03/20/19 06:59 06:59 06:59 Intake Total 2669 1740 Output Total 875 850 Balance 1794 890 Weight 84.6 kg 82.5 kg Exam: NGT decreased drainage Will D/C Abdomen is soft with mild tenderness,not distended Results Laboratory Results: 03/18/19 08:10 03/18/19 08:10 Impressions: Abdomen/Pelvis CT 03/16/19 00:00 IMPRESSION: 1. CHANGES OF RECENT APPENDECTOMY. MILD POSTOPERATIVE STRANDING BUT NO FOCAL FLUID COLLECTION OR EVIDENCE OF LOCALIZED ABSCESS. THERE IS A SMALL AMOUNT OF FREE FLUID IN THE RIGHT SIDE OF THE PELVIS. 2. DIFFUSELY DILATED SMALL BOWEL. THE DISTAL SMALL BOWEL AND COLON ARE NOT DISTENDED. SOMEWHAT CONCERNING FOR OBSTRUCTION. A FOCAL OBSTRUCTING LESION IS NOT DEMONSTRATED. 3. NO OTHER SIGNIFICANT OR ACUTE PROCESS IN THE ABDOMEN OR PELVIS. Assessment & Plan - Diagnosis (1) Perforated appendicitis Is this a current diagnosis for this admission?: Yes - Time Time Spent with patient: 15-24 minutes - Inpatient Certification Medical Necessity: Need For IV Fluids, Need for IV Antibiotics - Plan Summary Plan Summary: D/C NGT but go slow with po intake. Start ice chips Ambulate ad sol. Continue IV antibiotics if WBC normal
[2019-03-19] MEDS: METOCLOPRAMIDE HCL INJ/PF 10 MG/2 ML SDV IV PRN (17:01)
[2019-03-20] MEDS: KETOROLAC TROMETHAMINE INJ/PF 30 MG/1 ML SDV IV PRN (04:49)
[2019-03-20] MEDS: ONDANSETRON HCL INJ/PF 4 MG/2 ML SDV IV PRN (05:16)
[2019-03-20 05:51] LABS: ABSOLUTE BASOPHILS # (AUTO) 0.1 10^3/uL (0.0-0.2); ABSOLUTE EOSINOPHILS # (AUTO) 0.3 10^3/uL (0.0-0.6); ABSOLUTE LYMPHOCYTES (AUTO) 2.4 10^3/uL (0.5-4.7); ABSOLUTE MONOCYTES (AUTO) 1.9 10^3/uL (0.1-1.4); BASOPHILS % (AUTO) 0.9 % (0-2); EOSINOPHILS % (AUTO) 2.5 % (0-6); HEMATOCRIT 36.7 % (36.0-47.0); LYMPHOCYTES % (AUTO) 18.8 % (13-45); MEAN CORPUSCULAR HEMOGLOBIN 28.2 pg (27.0-33.4); MEAN CORPUSCULAR HGB CONC 32.8 g/dL (32.0-36.0); MEAN CORPUSCULAR VOLUME 86 fl (80-97); MONOCYTES % (AUTO) 15.2 % (3-13); PLATELET COUNT 355 10^3/uL (150-450); RED BLOOD COUNT 4.27 10^6/uL (3.72-5.28); RED CELL DISTRIBUTION WIDTH 14.6 % (11.5-14.0); SEGMENTED NEUTROPHILS % (AUTO) 62.6 % (42-78); TOTAL CELLS COUNTED % (AUTO) 100 %; WHITE BLOOD COUNT 12.8 10^3/uL (4.0-10.5)
[2019-03-20] MEDS: POTASSI CL 20 MEQ/1/2NS 1L 1000 ML IV PRN (09:31)
[2019-03-20] MEDS: VALACYCLOVIR HCL 500 MG TABLET PO SCH ×2 (09:32→21:58)
[2019-03-20] MEDS: PROMETHAZINE HCL INJ 25 MG/1 ML VIAL IV PRN (09:33)
[2019-03-20] MEDS: FAMOTIDINE INJ/PF 20 MG/2 ML SDV IV SCH ×2 (09:33→21:57)
[2019-03-20] MEDS: HYDROMORPHONE HCL INJ/PF 2 MG/ML AMPULE IV PRN (09:33)
[2019-03-20] MEDS: DOCUSATE SODIUM 100 MG CAPSULE PO SCH ×2 (09:54→17:09)
[2019-03-20] MEDS: IBUPROFEN 800 MG TABLET PO SCH ×2 (13:50→16:53)
[2019-03-20] MEDS: CEFEPIME 2 GM/D5W RTU 2 GM/50 ML RTUPB IV SCH ×2 (14:25→21:58)
[2019-03-20] MEDS: HYDROCODONE/ACETAMINOPHEN 10-325 MG TABLET PO PRN ×2 (14:29→21:57)
--- NOTE | 2019-03-20 18:02 | PDOC PROGRESS REPORT ---
Subjective Progress Note for:: 03/20/19 Subjective:: Feeling a lot better. Less pains. Having more formed stools Reason For Visit: APPENDICITIS Physical Exam Vital Signs: Temp Pulse Resp BP Pulse Ox 98.5 F 90 17 123/66 94 03/20/19 08:13 03/20/19 08:13 03/20/19 08:13 03/20/19 08:13 03/20/19 08:13 Intake & Output 03/19/19 03/20/19 03/21/19 06:59 06:59 06:59 Intake Total 1740 1050 1367 Output Total 850 Balance 890 1050 1367 Weight 82.5 kg 82.4 kg Exam: abdomen is soft and non tender Results Laboratory Results: 03/20/19 04:58 03/18/19 08:10 03/20/19 04:58 WBC 12.8 H RBC 4.27 Hgb 12.0 Hct 36.7 MCV 86 MCH 28.2 MCHC 32.8 RDW 14.6 H Plt Count 355 Seg Neutrophils % 62.6 Impressions: Abdomen/Pelvis CT 03/16/19 00:00 IMPRESSION: 1. CHANGES OF RECENT APPENDECTOMY. MILD POSTOPERATIVE STRANDING BUT NO FOCAL FLUID COLLECTION OR EVIDENCE OF LOCALIZED ABSCESS. THERE IS A SMALL AMOUNT OF FREE FLUID IN THE RIGHT SIDE OF THE PELVIS. 2. DIFFUSELY DILATED SMALL BOWEL. THE DISTAL SMALL BOWEL AND COLON ARE NOT DISTENDED. SOMEWHAT CONCERNING FOR OBSTRUCTION. A FOCAL OBSTRUCTING LESION IS NOT DEMONSTRATED. 3. NO OTHER SIGNIFICANT OR ACUTE PROCESS IN THE ABDOMEN OR PELVIS. Assessment & Plan - Diagnosis (1) Perforated appendicitis Is this a current diagnosis for this admission?: Yes - Time Time Spent with patient: 15-24 minutes - Inpatient Certification Medical Necessity: Need Close Monitoring Due to Risk of Patient Decompensation, Need For IV Fluids - Gradually increase p.o. intake to full liquids today then gradually increase to regular diet as tolerated
--- NOTE | 2019-03-20 18:10 | PDOC PROGRESS REPORT ---
Subjective Progress Note for:: 03/20/19 Subjective:: Feeling a lot better today. Having more formed stools. Denies any nausea or vomiting Reason For Visit: APPENDICITIS Physical Exam Vital Signs: Temp Pulse Resp BP Pulse Ox 98.5 F 90 17 123/66 94 03/20/19 08:13 03/20/19 08:13 03/20/19 08:13 03/20/19 08:13 03/20/19 08:13 Intake & Output 03/19/19 03/20/19 03/21/19 06:59 06:59 06:59 Intake Total 1740 1050 1367 Output Total 850 Balance 890 1050 1367 Weight 82.5 kg 82.4 kg Exam: Her abdomen is soft and nontender. Incisions are clean and dry Results Laboratory Results: 03/20/19 04:58 03/18/19 08:10 03/20/19 04:58 WBC 12.8 H RBC 4.27 Hgb 12.0 Hct 36.7 MCV 86 MCH 28.2 MCHC 32.8 RDW 14.6 H Plt Count 355 Seg Neutrophils % 62.6 Impressions: Abdomen/Pelvis CT 03/16/19 00:00 IMPRESSION: 1. CHANGES OF RECENT APPENDECTOMY. MILD POSTOPERATIVE STRANDING BUT NO FOCAL FLUID COLLECTION OR EVIDENCE OF LOCALIZED ABSCESS. THERE IS A SMALL AMOUNT OF FREE FLUID IN THE RIGHT SIDE OF THE PELVIS. 2. DIFFUSELY DILATED SMALL BOWEL. THE DISTAL SMALL BOWEL AND COLON ARE NOT DISTENDED. SOMEWHAT CONCERNING FOR OBSTRUCTION. A FOCAL OBSTRUCTING LESION IS NOT DEMONSTRATED. 3. NO OTHER SIGNIFICANT OR ACUTE PROCESS IN THE ABDOMEN OR PELVIS. Assessment & Plan - Diagnosis (1) Perforated appendicitis Is this a current diagnosis for this admission?: Yes - Time Time Spent with patient: 15-24 minutes - Inpatient Certification Medical Necessity: Need for IV Antibiotics - Plan Summary Plan Summary: POD #8 post laparoscopic appendectomy for perforated appendix. She is gradually improving with a white count down to 12.8 today. Plans: Continue to increase diet to full liquids today. If tolerates full liquids then may be able to start soft diet tomorrow. She is on day 8 postop. Continue IV antibiotics for another 24 to 48hours.
[2019-03-21] MEDS: HYDROCODONE/ACETAMINOPHEN 10-325 MG TABLET PO PRN ×2 (04:51→08:53)
[2019-03-21] MEDS: IBUPROFEN 800 MG TABLET PO SCH ×3 (08:01→18:52)
[2019-03-21] MEDS: CEFEPIME 2 GM/D5W RTU 2 GM/50 ML RTUPB IV SCH ×2 (09:00→22:00)
[2019-03-21] MEDS: DOCUSATE SODIUM 100 MG CAPSULE PO SCH ×2 (09:00→18:52)
[2019-03-21] MEDS: VALACYCLOVIR HCL 500 MG TABLET PO SCH ×2 (09:00→23:33)
[2019-03-21] MEDS: FAMOTIDINE INJ/PF 20 MG/2 ML SDV IV SCH (09:00)
--- NOTE | 2019-03-21 10:08 | PDOC PROGRESS REPORT ---
Subjective Progress Note for:: 03/21/19 Subjective:: Patient states she feels better, but still having pain requiring p.o. narcotics. Reason For Visit: APPENDICITIS Physical Exam Vital Signs: Temp Pulse Resp BP Pulse Ox 98.2 F 87 18 125/68 97 03/21/19 08:00 03/21/19 08:00 03/21/19 08:00 03/21/19 08:00 03/21/19 08:00 Intake & Output 03/20/19 03/21/19 03/22/19 06:59 06:59 06:59 Intake Total 1050 1657 Balance 1050 1657 Weight 82.4 kg 83.2 kg General appearance: PRESENT: mild distress GI/Abdominal exam: PRESENT: other - Abdomen is soft, little to she, but no guarding no peritoneal signs. Results Laboratory Results: 03/20/19 04:58 03/18/19 08:10 Impressions: Abdomen/Pelvis CT 03/16/19 00:00 IMPRESSION: 1. CHANGES OF RECENT APPENDECTOMY. MILD POSTOPERATIVE STRANDING BUT NO FOCAL FLUID COLLECTION OR EVIDENCE OF LOCALIZED ABSCESS. THERE IS A SMALL AMOUNT OF FREE FLUID IN THE RIGHT SIDE OF THE PELVIS. 2. DIFFUSELY DILATED SMALL BOWEL. THE DISTAL SMALL BOWEL AND COLON ARE NOT DISTENDED. SOMEWHAT CONCERNING FOR OBSTRUCTION. A FOCAL OBSTRUCTING LESION IS NOT DEMONSTRATED. 3. NO OTHER SIGNIFICANT OR ACUTE PROCESS IN THE ABDOMEN OR PELVIS. Assessment & Plan - Diagnosis (1) Perforated appendicitis Is this a current diagnosis for this admission?: Yes Plan: Impression: Residual abdominal pain minimal abdominal distention, otherwise medically improving, no tachycardia no fever. Tolerating limited diet Recommendations: 1. Continue current course of cefepime and valacyclovir, diet 2. Encouraged ambulation; we will reinspect patient later this afternoon, and consider discharge home. This was discussed with patient and her . - Time Time Spent with patient: 15-24 minutes Smoking Cessation Education: over 10 minutes Medications reviewed and adjusted accordingly: Yes Anticipated discharge: Home
[2019-03-21] MEDS: PANTOPRAZOLE SODIUM 40 MG TABLET.DR PO SCH (10:12)
[2019-03-21] MEDS: LORAZEPAM INJ 2 MG/1 ML VIAL IV PRN (10:24)
[2019-03-21 14:08] LABS: ABSOLUTE BASOPHILS # (AUTO) 0.1 10^3/uL (0.0-0.2); ABSOLUTE EOSINOPHILS # (AUTO) 0.3 10^3/uL (0.0-0.6); ABSOLUTE MONOCYTES (AUTO) 1.5 10^3/uL (0.1-1.4); ABSOLUTE NEUT (AUTO) 10.7 10^3/uL (1.7-8.2); BASOPHILS % (AUTO) 0.8 % (0-2); EOSINOPHILS % (AUTO) 2.3 % (0-6); HEMATOCRIT 36.7 % (36.0-47.0); HEMOGLOBIN 12.1 g/dL (12.0-15.5); LYMPHOCYTES % (AUTO) 13.7 % (13-45); MEAN CORPUSCULAR HEMOGLOBIN 28.3 pg (27.0-33.4); MEAN CORPUSCULAR HGB CONC 33.1 g/dL (32.0-36.0); MEAN CORPUSCULAR VOLUME 86 fl (80-97); MONOCYTES % (AUTO) 10.4 % (3-13); PLATELET COUNT 329 10^3/uL (150-450); RED BLOOD COUNT 4.29 10^6/uL (3.72-5.28); RED CELL DISTRIBUTION WIDTH 14.5 % (11.5-14.0); SEGMENTED NEUTROPHILS % (AUTO) 72.8 % (42-78); TOTAL CELLS COUNTED % (AUTO) 100 %; WHITE BLOOD COUNT 14.7 10^3/uL (4.0-10.5)
[2019-03-21] MEDS: PROMETHAZINE HCL INJ 25 MG/1 ML VIAL IV PRN ×2 (15:19→22:00)
--- NOTE | 2019-03-21 18:34 | RADIOLOGY REPORT (SQ) ---
EXAM DESCRIPTION: CT ABD/PELVIS WITH IV ORAL COMPLETED DATE/TIME: 03/21/2019 6:15 pm REASON FOR STUDY: Increased abdominal pain. Increase in WBC. COMPARISON: 03/16/2019. TECHNIQUE: CT scan of the abdomen and pelvis performed with intravenous and oral contrast using padma jose scanning technique with dynamic intravenous contrast injection. Images reviewed with lung, soft t issue, and bone windows. Reconstructed coronal and sagittal MPR images reviewed. Delayed images for e valuation of the urinary system also acquired. All images stored on PACS. All CT scanners at this facility use dose modulation, iterative reconstruction, and/or weight based d osing when appropriate to reduce radiation dose to as low as reasonably achievable (ALARA). [facility]: Dose Right [facility]: CareDose [facility]: Dose Right [facility]: Teradose 4D [facility]: [employer] CONTRAST TYPE AND DOSE: 95 mL Omnipaque 350- low osmolar. RENAL FUNCTION: BUN 6 creatinine 0.35. RADIATION DOSE: CT Rad equipment meets quality standard of care and radiation dose reduction techniq ues were employed. CTDIvol: 11.4 - 15.4 mGy. DLP: 1494 mGy-cm.. LIMITATIONS: None. FINDINGS: LOWER CHEST: No significant findings. No nodules or infiltrates. LIVER: Normal size. No masses. No dilated ducts. SPLEEN: Normal size. No focal lesions. PANCREAS: No masses. No significant calcifications. No adjacent inflammation or peripancreatic fluid collections. Pancreatic duct not dilated. GALLBLADDER: No identified stones by CT criteria. No inflammatory changes to suggest cholecystitis. ADRENAL GLANDS: No significant masses or asymmetry. RIGHT KIDNEY AND URETER: No solid masses. No significant calcification. No hydronephrosis or hydroure ter. LEFT KIDNEY AND URETER: No solid masses. No significant calcification. No hydronephrosis or hydrouret er. AORTA AND VESSELS: No aneurysm. No dissection. Renal arteries, SMA, celiac without stenosis. RETROPERITONEUM: No retroperitoneal adenopathy, hemorrhage or masses. BOWEL AND PERITONEAL CAVITY: Dilated proximal small bowel. The distal small bowel and colon are not distended. No visualized masses. No free fluid. No inflammatory changes or thickening of bowel wall. APPENDIX: Surgically absent. There is a fluid collection in the operative site located just deep to the abdominal wall, approximately 2 to 2.5 cm in thickness and 8.5 cm in width. PELVIS: No significant masses. Normal bladder. No free fluid. ABDOMINAL WALL: No masses. No hernias. BONES: No significant or acute findings. OTHER: No other significant finding. IMPRESSION: 1. FLUID COLLECTION IN THE OPERATIVE SITE OF THE RIGHT LOWER QUADRANT. THIS MAY REPRESENT POSTOP SER CANDY/RESOLVING HEMATOMA VERSUS ABSCESS. 2. PERSISTENT SMALL BOWEL DILATION CONCERNING FOR AT LEAST PARTIAL OBSTRUCTION. 3. NO OTHER SIGNIFICANT OR ACUTE FINDINGS IN THE ABDOMEN OR PELVIS. TECHNICAL DOCUMENTATION: JOB ID: [id number] Quality ID # [id number]: Final reports with documentation of one or more dose reduction techniques (e.g., Au tomated exposure control, adjustment of the mA and/or kV according to patient size, use of iterative reconstruction technique) 2010 [employer]- All Rights Reserved Reading location - IP/workstation name: [email or web address]
[2019-03-21] MEDS: HYDROMORPHONE HCL INJ/PF 2 MG/ML AMPULE IV PRN (21:59)
[2019-03-22] MEDS: HYDROMORPHONE HCL INJ/PF 2 MG/ML AMPULE IV PRN ×4 (03:11→16:42)
[2019-03-22] MEDS: PROMETHAZINE HCL INJ 25 MG/1 ML VIAL IV PRN ×2 (03:11→16:42)
[2019-03-22] MEDS: LORAZEPAM INJ 2 MG/1 ML VIAL IV PRN ×2 (04:24→09:25)
[2019-03-22] MEDS: CEFEPIME 2 GM/D5W RTU 2 GM/50 ML RTUPB IV SCH ×2 (09:02→22:04)
[2019-03-22] MEDS: IBUPROFEN 800 MG TABLET PO SCH ×3 (09:06→17:05)
[2019-03-22] MEDS: DOCUSATE SODIUM 100 MG CAPSULE PO SCH ×2 (09:06→17:05)
[2019-03-22] MEDS: VALACYCLOVIR HCL 500 MG TABLET PO SCH ×2 (09:06→22:03)
[2019-03-22] MEDS: PANTOPRAZOLE SODIUM 40 MG TABLET.DR PO SCH (09:06)
[2019-03-22 09:50] LABS: PROTHROMBIN TIME 17.3 SEC (11.4-15.4)
--- NOTE | 2019-03-22 09:50 | PDOC PROGRESS REPORT ---
Subjective Progress Note for:: 03/22/19 Subjective:: Started to have more pains at the RUQ worse on deep breathing. Reason For Visit: APPENDICITIS Physical Exam Vital Signs: Temp Pulse Resp BP Pulse Ox 98.3 F 115 H 17 125/68 97 03/22/19 08:00 03/22/19 08:00 03/22/19 08:00 03/22/19 08:00 03/22/19 08:00 Intake & Output 03/21/19 03/22/19 03/23/19 06:59 06:59 06:59 Intake Total 1657 100 Balance 1657 100 Weight 83.2 kg 82.8 kg Exam: Abdomen is soft. Mild tenderness RUQ. Results Laboratory Results: 03/21/19 13:41 03/18/19 08:10 03/21/19 13:41 WBC 14.7 H RBC 4.29 Hgb 12.1 Hct 36.7 MCV 86 MCH 28.3 MCHC 33.1 RDW 14.5 H Plt Count 329 Seg Neutrophils % 72.8 Impressions: Abdomen/Pelvis CT 03/21/19 00:00 IMPRESSION: 1. FLUID COLLECTION IN THE OPERATIVE SITE OF THE RIGHT LOWER QUADRANT. THIS MAY REPRESENT POSTOP SEROMA/RESOLVING HEMATOMA VERSUS ABSCESS. 2. PERSISTENT SMALL BOWEL DILATION CONCERNING FOR AT LEAST PARTIAL OBSTRUCTION. 3. NO OTHER SIGNIFICANT OR ACUTE FINDINGS IN THE ABDOMEN OR PELVIS. Assessment & Plan - Diagnosis (1) Perforated appendicitis Is this a current diagnosis for this admission?: Yes - Time Time Spent with patient: 15-24 minutes - Inpatient Certification Medical Necessity: Need for IV Antibiotics, Need for Surgery - Plan Summary Plan Summary: CT scan showed collection under peritoneum at the RUQ. Reviewed with Radiologist Dr Reyez. He will place a drain and send specimen for C&S Continue IV antibiotics Resume Clears post drainage
[2019-03-22 09:51] LABS: PARTIAL THROMBOPLASTIN TIME 30.4 SEC (23.5-35.8)
[2019-03-22] MEDS ORDERED: FENTANYL CITRATE INJ/PF 100 MCG/2 ML AMPUL ONE (11:47)
[2019-03-22] MEDS ORDERED: MIDAZOLAM 2 MG/2 ML INJ ONE (11:47)
--- NOTE | 2019-03-22 15:22 | RADIOLOGY REPORT (SQ) ---
EXAM DESCRIPTION: CT DRAINAGE RETRO/PERITONEAL COMPLETED DATE/TIME: 03/22/2019 2:47 pm REASON FOR STUDY: FLUID COLLECTION POST-APPENDECTOMY COMPARISON: 03/21/2019. TECHNIQUE: CT guided aspiration of the right lower quadrant fluid collection performed with consciou s sedation. CT Fluoroscopy Time: 9.[address] scanners at this facility use dose modulation, iterative reconstruction, and/or weight based d osing when appropriate to reduce radiation dose to as low as reasonably achievable (ALARA). [facility]: Dose Right [facility]: CareDose [facility]: Dose Right [facility]: Teradose 4D [facility]: [employer] RADIATION DOSE: CT Rad equipment meets quality standard of care and radiation dose reduction techni ques were employed. CTDIvol: 4.0 - 20.4 mGy. DLP: 2019 mGy-cm.mGy. FINDINGS: After obtaining informed consent and explaining the risks and benefits of conscious sedati on,the patient agreed to the procedure. Prior to the procedure, a time out was performed to verify th e patient's identity and planned procedure. IV sedation was administered and physician direction by the registered nurse using 1 milligrams of Ve rsed and 50 micrograms of fentanyl, for conscious sedation. Physiologic monitoring was provided befor e, during, and after sedation. The total sedation time was 30 minutes. Documentation face to face time, the performing proceduralist, spent monitoring the patient: [address] scanning was performed to localize the percutaneous site for the aspiration approach. After sterile skin prep and local lidocaine for skin and deep tissue anesthesia, an 18 gauge needle w as advanced into the fluid collection. 15 mL of purulent cloudy milky fluid was easily aspirated. I mages following aspiration showed that the fluid collection had decreased in size. There were no imme diate complications. The aspirated fluid was sent to the laboratory for testing. IMPRESSION: CT GUIDED ASPIRATION OF THE RIGHT LOWER QUADRANT FLUID COLLECTION PERFORMED WITHOUT IMME DIATE COMPLICATION. COMMENT: Quality ID 145: Final reports for procedures using fluoroscopy that document radiation exp osure indices, or exposure time and number of fluorographic images (if radiation exposure indices are not available) Patient medication list reviewed: Yes- Quality ID# [id number]:Eligible professional attests to documenting i n the medical record they obtained, updated, or reviewed the patient's current medications.. TECHNICAL DOCUMENTATION: JOB ID: [id number] Quality ID# [id number]: Final reports with documentation of one or more dose reduction techniques (e.g., Aut omated exposure control, adjustment of the mA and/or kV according to patient size, use of iterative r econstruction technique) 2010 [email or web address]- All Rights Reserved Reading location - IP/workstation name: [facility]-
[2019-03-22] MEDS: HYDROCODONE/ACETAMINOPHEN 10-325 MG TABLET PO PRN (22:03)
[2019-03-23] MEDS: HYDROCODONE/ACETAMINOPHEN 10-325 MG TABLET PO PRN ×4 (03:21→22:42)
[2019-03-23] MEDS: METOCLOPRAMIDE HCL INJ/PF 10 MG/2 ML SDV IV PRN (06:22)
[2019-03-23 08:18] LABS: ABSOLUTE BASOPHILS # (AUTO) 0.1 10^3/uL (0.0-0.2); ABSOLUTE EOSINOPHILS # (AUTO) 0.3 10^3/uL (0.0-0.6); ABSOLUTE LYMPHOCYTES (AUTO) 2.1 10^3/uL (0.5-4.7); ABSOLUTE MONOCYTES (AUTO) 1.3 10^3/uL (0.1-1.4); ABSOLUTE NEUT (AUTO) 6.5 10^3/uL (1.7-8.2); BASOPHILS % (AUTO) 0.9 % (0-2); EOSINOPHILS % (AUTO) 2.7 % (0-6); HEMATOCRIT 38.7 % (36.0-47.0); HEMOGLOBIN 12.8 g/dL (12.0-15.5); LYMPHOCYTES % (AUTO) 20.4 % (13-45); MEAN CORPUSCULAR HEMOGLOBIN 28.5 pg (27.0-33.4); MEAN CORPUSCULAR HGB CONC 33.1 g/dL (32.0-36.0); MEAN CORPUSCULAR VOLUME 86 fl (80-97); PLATELET COUNT 352 10^3/uL (150-450); RED BLOOD COUNT 4.48 10^6/uL (3.72-5.28); RED CELL DISTRIBUTION WIDTH 14.6 % (11.5-14.0); TOTAL CELLS COUNTED % (AUTO) 100 %; WHITE BLOOD COUNT 10.3 10^3/uL (4.0-10.5)
--- NOTE | 2019-03-23 08:28 | PDOC PROGRESS REPORT ---
Subjective Progress Note for:: 03/23/19 Subjective:: feels ok, less rt upper quadrent pain gianluca diet passing some liquid stool, flatus Reason For Visit: APPENDICITIS perforated appendicitis Physical Exam Vital Signs: Temp Pulse Resp BP Pulse Ox 97.2 F 114 H 17 114/76 95 03/22/19 16:00 03/22/19 16:00 03/22/19 16:00 03/22/19 16:00 03/22/19 16:00 Intake & Output 03/22/19 03/23/19 03/24/19 06:59 06:59 06:59 Intake Total 100 320 Balance 100 320 Weight 82.8 kg 80.9 kg General appearance: PRESENT: no acute distress Head exam: PRESENT: normocephalic Eye exam: PRESENT: EOMI Ear exam: PRESENT: normal external ear exam Mouth exam: PRESENT: moist Neck exam: PRESENT: full ROM Respiratory exam: PRESENT: clear to auscultation berta Cardiovascular exam: PRESENT: RRR Pulses: PRESENT: normal radial pulses, normal femoral pulses Vascular exam: PRESENT: normal capillary refill GI/Abdominal exam: PRESENT: soft, other - min tenderness to palpation on right Rectal exam: PRESENT: deferred Extremities exam: PRESENT: full ROM Musculoskeletal exam: PRESENT: full ROM Neurological exam: PRESENT: alert, awake, oriented to person, oriented to place Psychiatric exam: PRESENT: appropriate affect Skin exam: PRESENT: dry Results Laboratory Results: 03/18/19 08:10 Impressions: Abdomen/Pelvis CT 03/21/19 00:00 IMPRESSION: 1. FLUID COLLECTION IN THE OPERATIVE SITE OF THE RIGHT LOWER QUADRANT. THIS MAY REPRESENT POSTOP SEROMA/RESOLVING HEMATOMA VERSUS ABSCESS. 2. PERSISTENT SMALL BOWEL DILATION CONCERNING FOR AT LEAST PARTIAL OBSTRUCTION. 3. NO OTHER SIGNIFICANT OR ACUTE FINDINGS IN THE ABDOMEN OR PELVIS. Retroperitoneal Abscess Drainage 03/22/19 00:00 IMPRESSION: CT GUIDED ASPIRATION OF THE RIGHT LOWER QUADRANT FLUID COLLECTION PERFORMED WITHOUT IMMEDIATE COMPLICATION. Assessment & Plan - Diagnosis (1) Perforated appendicitis Is this a current diagnosis for this admission?: Yes - Time Time Spent with patient: 25-34 minutes - Plan Summary Plan Summary: s/p perforated appendicitis with prolonged hospital course developed ruq fluid/abscess s/p perc aspiration, no drain now with less ruq pain wbc still eleveed 2 days ago on iv maxipine q 12 cults from ruq fluid pending + gram neg rods plan advance diet cont iv abx recheck cbc increase activity.
[2019-03-23] MEDS: PROMETHAZINE HCL INJ 25 MG/1 ML VIAL IV PRN (10:17)
[2019-03-23] MEDS: HYDROMORPHONE HCL INJ/PF 2 MG/ML AMPULE IV PRN (10:24)
[2019-03-23] MEDS: VALACYCLOVIR HCL 500 MG TABLET PO SCH ×2 (12:03→22:13)
[2019-03-23] MEDS: IBUPROFEN 800 MG TABLET PO SCH ×3 (12:03→18:53)
[2019-03-23] MEDS: PANTOPRAZOLE SODIUM 40 MG TABLET.DR PO SCH (12:03)
[2019-03-23] MEDS: DOCUSATE SODIUM 100 MG CAPSULE PO SCH ×2 (12:03→18:53)
[2019-03-23] MEDS: CEFEPIME 2 GM/D5W RTU 2 GM/50 ML RTUPB IV SCH ×2 (12:04→22:13)
[2019-03-24] MEDS: HYDROCODONE/ACETAMINOPHEN 10-325 MG TABLET PO PRN ×5 (03:14→23:24)
[2019-03-24] MEDS: IBUPROFEN 800 MG TABLET PO SCH ×3 (07:49→17:33)
--- NOTE | 2019-03-24 07:51 | PDOC PROGRESS REPORT ---
Subjective Progress Note for:: 03/24/19 Subjective:: feels better up ambulating gianluca po passing bm's Reason For Visit: APPENDICITIS Physical Exam Vital Signs: Temp Pulse Resp BP Pulse Ox 98.2 F 90 17 123/71 98 03/24/19 00:00 03/24/19 00:00 03/24/19 00:00 03/24/19 00:00 03/24/19 00:00 Intake & Output 03/23/19 03/24/19 03/25/19 06:59 06:59 06:59 Intake Total 370 1174 Balance 370 1174 Weight 80.9 kg 81.5 kg General appearance: PRESENT: no acute distress Head exam: PRESENT: normocephalic Ear exam: PRESENT: TM's normal bilaterally Mouth exam: PRESENT: moist Neck exam: PRESENT: full ROM Respiratory exam: PRESENT: clear to auscultation berta Cardiovascular exam: PRESENT: RRR Pulses: PRESENT: normal radial pulses, normal femoral pulses Vascular exam: PRESENT: normal capillary refill GI/Abdominal exam: PRESENT: soft Rectal exam: PRESENT: deferred Extremities exam: PRESENT: full ROM Musculoskeletal exam: PRESENT: full ROM Neurological exam: PRESENT: alert, awake, oriented to person, oriented to place Psychiatric exam: PRESENT: appropriate affect Skin exam: PRESENT: dry Results Laboratory Results: 03/23/19 08:07 03/18/19 08:10 03/23/19 08:07 WBC 10.3 RBC 4.48 Hgb 12.8 Hct 38.7 MCV 86 MCH 28.5 MCHC 33.1 RDW 14.6 H Plt Count 352 Seg Neutrophils % 63.0 Impressions: Abdomen/Pelvis CT 03/21/19 00:00 IMPRESSION: 1. FLUID COLLECTION IN THE OPERATIVE SITE OF THE RIGHT LOWER QUADRANT. THIS MAY REPRESENT POSTOP SEROMA/RESOLVING HEMATOMA VERSUS ABSCESS. 2. PERSISTENT SMALL BOWEL DILATION CONCERNING FOR AT LEAST PARTIAL OBSTRUCTION. 3. NO OTHER SIGNIFICANT OR ACUTE FINDINGS IN THE ABDOMEN OR PELVIS. Retroperitoneal Abscess Drainage 03/22/19 00:00 IMPRESSION: CT GUIDED ASPIRATION OF THE RIGHT LOWER QUADRANT FLUID COLLECTION PERFORMED WITHOUT IMMEDIATE COMPLICATION. Assessment & Plan - Diagnosis (1) Perforated appendicitis Is this a current diagnosis for this admission?: Yes - Time Time Spent with patient: 25-34 minutes - Plan Summary Plan Summary: s/p perforated appy iwth post op abscess s/p perc drain doing better now will dc iv abx strart po cipro prob home in am.
[2019-03-24 11:06] LABS: ABSOLUTE BASOPHILS # (AUTO) 0.1 10^3/uL (0.0-0.2); ABSOLUTE EOSINOPHILS # (AUTO) 0.3 10^3/uL (0.0-0.6); ABSOLUTE MONOCYTES (AUTO) 0.9 10^3/uL (0.1-1.4); BASOPHILS % (AUTO) 1.2 % (0-2); EOSINOPHILS % (AUTO) 3.3 % (0-6); HEMATOCRIT 41.1 % (36.0-47.0); HEMOGLOBIN 13.7 g/dL (12.0-15.5); LYMPHOCYTES % (AUTO) 23.7 % (13-45); MEAN CORPUSCULAR HEMOGLOBIN 28.7 pg (27.0-33.4); MEAN CORPUSCULAR HGB CONC 33.3 g/dL (32.0-36.0); MEAN CORPUSCULAR VOLUME 86 fl (80-97); PLATELET COUNT 392 10^3/uL (150-450); RED BLOOD COUNT 4.76 10^6/uL (3.72-5.28); RED CELL DISTRIBUTION WIDTH 14.6 % (11.5-14.0); SEGMENTED NEUTROPHILS % (AUTO) 60.8 % (42-78); TOTAL CELLS COUNTED % (AUTO) 100 %; WHITE BLOOD COUNT 8.3 10^3/uL (4.0-10.5)
[2019-03-24] MEDS: CIPROFLOXACIN HCL 500 MG TABLET PO SCH ×2 (11:27→22:15)
[2019-03-24] MEDS: DOCUSATE SODIUM 100 MG CAPSULE PO SCH ×2 (11:27→17:33)
[2019-03-24] MEDS: PANTOPRAZOLE SODIUM 40 MG TABLET.DR PO SCH (11:27)
[2019-03-24] MEDS: VALACYCLOVIR HCL 500 MG TABLET PO SCH ×2 (11:27→22:15)
[2019-03-25] MEDS ORDERED: PROMETHAZINE HCL 25 MG TABLET ONE (07:35)
[2019-03-25] MEDS: HYDROCODONE/ACETAMINOPHEN 10-325 MG TABLET PO PRN ×4 (07:40→23:00)
--- NOTE | 2019-03-25 07:46 | PDOC PROGRESS REPORT ---
Subjective Progress Note for:: 03/25/19 Subjective:: recurrent pain rt side Reason For Visit: APPENDICITIS Physical Exam Vital Signs: Temp Pulse Resp BP Pulse Ox 98.4 F 88 17 142/65 H 99 03/25/19 00:00 03/25/19 00:00 03/25/19 00:00 03/25/19 00:00 03/25/19 00:00 Intake & Output 03/24/19 03/25/19 03/26/19 06:59 06:59 06:59 Intake Total 1174 1430 Balance 1174 1430 Weight 81.5 kg 82.2 kg General appearance: PRESENT: mild distress Head exam: PRESENT: normocephalic Eye exam: PRESENT: EOMI Mouth exam: PRESENT: moist Neck exam: PRESENT: full ROM Respiratory exam: PRESENT: clear to auscultation berta Cardiovascular exam: PRESENT: RRR Pulses: PRESENT: normal radial pulses, normal femoral pulses Vascular exam: PRESENT: normal capillary refill GI/Abdominal exam: PRESENT: tenderness - rt upper quadrent Rectal exam: PRESENT: deferred Extremities exam: PRESENT: full ROM Musculoskeletal exam: PRESENT: full ROM Neurological exam: PRESENT: alert, awake, oriented to person, oriented to place Psychiatric exam: PRESENT: anxious Skin exam: PRESENT: dry Results Laboratory Results: 03/24/19 10:15 03/18/19 08:10 03/24/19 10:15 WBC 8.3 RBC 4.76 Hgb 13.7 Hct 41.1 MCV 86 MCH 28.7 MCHC 33.3 RDW 14.6 H Plt Count 392 Seg Neutrophils % 60.8 Impressions: Abdomen/Pelvis CT 03/21/19 00:00 IMPRESSION: 1. FLUID COLLECTION IN THE OPERATIVE SITE OF THE RIGHT LOWER QUADRANT. THIS MAY REPRESENT POSTOP SEROMA/RESOLVING HEMATOMA VERSUS ABSCESS. 2. PERSISTENT SMALL BOWEL DILATION CONCERNING FOR AT LEAST PARTIAL OBSTRUCTION. 3. NO OTHER SIGNIFICANT OR ACUTE FINDINGS IN THE ABDOMEN OR PELVIS. Retroperitoneal Abscess Drainage 03/22/19 00:00 IMPRESSION: CT GUIDED ASPIRATION OF THE RIGHT LOWER QUADRANT FLUID COLLECTION PERFORMED WITHOUT IMMEDIATE COMPLICATION. Assessment & Plan - Diagnosis (1) Perforated appendicitis Is this a current diagnosis for this admission?: Yes - Time Time Spent with patient: 25-34 minutes - Plan Summary Plan Summary: still with right sided pain will repeat ct today, poss home if no evidence of recurrent fluid collection.
[2019-03-25] MEDS ORDERED: PROMETHAZINE HCL 25 MG TABLET PO PRN (08:14)
[2019-03-25] MEDS ORDERED: PROMETHAZINE HCL 25 MG TABLET PO ONE (09:00)
--- NOTE | 2019-03-25 09:00 | RADIOLOGY REPORT (SQ) ---
EXAM DESCRIPTION: CT ABD/PELVIS NO ORAL OR IV COMPLETED DATE/TIME: 03/25/2019 8:24 am REASON FOR STUDY: r/o abd abscess rt side COMPARISON: 03/21/2019 TECHNIQUE: CT scan of the abdomen and pelvis performed with oral contrast and no intravenous contras t. Images reviewed with lung, soft tissue, and bone windows. Reconstructed coronal and sagittal MPR i mages reviewed. All images stored on PACS. All CT scanners at this facility use dose modulation, iterative reconstruction, and/or weight based d osing when appropriate to reduce radiation dose to as low as reasonably achievable (ALARA). [facility]: Dose Right [facility]: CareDose [facility]: Dose Right [facility]: Teradose 4D [facility]: [employer] RADIATION DOSE: mGy. LIMITATIONS: None. FINDINGS: Interval decrease in free fluid in the right lower quadrant. No organized fluid collectio n. Residual mild segmental dilatation of small bowel loops with gas and fecal material in nondilated colon. Contrast extends to the rectum. No other significant change. IMPRESSION: Resolving postsurgical changes right lower quadrant. No abscess. Mild residual ileus. TECHNICAL DOCUMENTATION: JOB ID: [id number] Quality ID # [id number]: Final reports with documentation of one or more dose reduction techniques (e.g., Au tomated exposure control, adjustment of the mA and/or kV according to patient size, use of iterative reconstruction technique) 2010 [employer]- All Rights Reserved Reading location - IP/workstation name: [email or web address]
[2019-03-25 10:04] LABS: ABSOLUTE BASOPHILS # (AUTO) 0.1 10^3/uL (0.0-0.2); ABSOLUTE EOSINOPHILS # (AUTO) 0.2 10^3/uL (0.0-0.6); ABSOLUTE LYMPHOCYTES (AUTO) 2.2 10^3/uL (0.5-4.7); ABSOLUTE NEUT (AUTO) 5.8 10^3/uL (1.7-8.2); EOSINOPHILS % (AUTO) 2.1 % (0-6); HEMATOCRIT 40.8 % (36.0-47.0); HEMOGLOBIN 13.4 g/dL (12.0-15.5); LYMPHOCYTES % (AUTO) 23.5 % (13-45); MEAN CORPUSCULAR HEMOGLOBIN 28.4 pg (27.0-33.4); MEAN CORPUSCULAR HGB CONC 32.7 g/dL (32.0-36.0); MEAN CORPUSCULAR VOLUME 87 fl (80-97); MONOCYTES % (AUTO) 10.8 % (3-13); PLATELET COUNT 436 10^3/uL (150-450); RED BLOOD COUNT 4.71 10^6/uL (3.72-5.28); RED CELL DISTRIBUTION WIDTH 14.4 % (11.5-14.0); SEGMENTED NEUTROPHILS % (AUTO) 62.6 % (42-78); TOTAL CELLS COUNTED % (AUTO) 100 %; WHITE BLOOD COUNT 9.2 10^3/uL (4.0-10.5)
[2019-03-25] MEDS: IBUPROFEN 800 MG TABLET PO SCH ×3 (10:07→21:55)
[2019-03-25] MEDS: DOCUSATE SODIUM 100 MG CAPSULE PO SCH ×2 (10:08→18:02)
[2019-03-25] MEDS: VALACYCLOVIR HCL 500 MG TABLET PO SCH ×2 (10:08→21:55)
[2019-03-25] MEDS: PANTOPRAZOLE SODIUM 40 MG TABLET.DR PO SCH (10:08)
[2019-03-25] MEDS: CIPROFLOXACIN HCL 500 MG TABLET PO SCH ×2 (10:09→21:56)
[2019-03-26] MEDS: HYDROCODONE/ACETAMINOPHEN 10-325 MG TABLET PO PRN ×2 (03:22→08:21)
[2019-03-26] MEDS ORDERED: PROMETHAZINE HCL 25 MG TABLET PO ONE (03:30)
[2019-03-26 07:23] LABS: ABSOLUTE EOSINOPHILS # (AUTO) 0.2 10^3/uL (0.0-0.6); ABSOLUTE LYMPHOCYTES (AUTO) 2.8 10^3/uL (0.5-4.7); ABSOLUTE MONOCYTES (AUTO) 0.9 10^3/uL (0.1-1.4); ABSOLUTE NEUT (AUTO) 2.9 10^3/uL (1.7-8.2); BASOPHILS % (AUTO) 0.5 % (0-2); EOSINOPHILS % (AUTO) 2.5 % (0-6); HEMATOCRIT 39.1 % (36.0-47.0); HEMOGLOBIN 12.8 g/dL (12.0-15.5); LYMPHOCYTES % (AUTO) 40.8 % (13-45); MEAN CORPUSCULAR HEMOGLOBIN 28.5 pg (27.0-33.4); MEAN CORPUSCULAR HGB CONC 32.9 g/dL (32.0-36.0); MEAN CORPUSCULAR VOLUME 87 fl (80-97); MONOCYTES % (AUTO) 13.4 % (3-13); PLATELET COUNT 421 10^3/uL (150-450); RED BLOOD COUNT 4.51 10^6/uL (3.72-5.28); RED CELL DISTRIBUTION WIDTH 14.5 % (11.5-14.0); SEGMENTED NEUTROPHILS % (AUTO) 42.8 % (42-78); TOTAL CELLS COUNTED % (AUTO) 100 %; WHITE BLOOD COUNT 6.9 10^3/uL (4.0-10.5)
--- NOTE | 2019-03-26 07:36 | PDOC DISCHARGE SUMMARY ---
General - Admit/Disc Date/PCP Admission Date/Primary Care Provider: 03/15/19 13:31 KATHY BANSAL Discharge Date: 03/26/19 - Discharge Diagnosis Final Diagnosis: perforated appendicitis - Additional Information Resuscitation Status: Full Code Discharge Diet: As Tolerated Discharge Activity: No Lifting Over 10 Pounds - needs f/u in [facility] clinic in 7-10 days. Referrals: [facility] [Provider Group] - 03/24/19 8:00 am Home Medications: Levonorgestrel-Ethin Estradiol [Larissia-28 Tablet] 1 tab PO DAILY 03/12/19 Nadolol [Corgard 40 mg Tablet] 40 mg PO DAILY 03/12/19 Omeprazole 20 mg PO DAILY 03/12/19 History of Present Illiness History of Present Illness: ALMITA EDOUARD is a 49 year old female presents with 10/10 umbilical pain starting about 2 days ago getting worse and worse. Pain is no radiation nothing makes it better or worse. Patient denies any emesis is mildly nauseous from the pain. Patient had a normal bowel movement yesterday which is normal for her. Patient denies any trauma to her abdomen, fever chills or cough. Patient has decreased oral intake today secondary to pain and not feeling well. Denies any sick contacts. Patient was admitted to the hospital she went to the operating room for a laparoscopic appendectomy which noted the perforated appendicitis. She had a prolonged postoperative course secondary to that she remained on IV antibiotics and n.p.o. she had difficulty with nausea and vomiting requiring NG tube approximately 2 to 3 days postop which remained in place for 3 to 4 days at which point she had return of bowel function. Subsequent to that she developed right upper quadrant abdominal pain a repeat CT scan showed a loculated fluid collection which was drained by IR. Subsequent to that she improved her bowel function remained intact her white blood count normalized on IV antibiotics. Over the course of the next week she continued to improve with normal bowel function decreasing abdominal pain and a normalizing white blood count. At the time of discharge she is now afebrile with stable vital signs she has a normal white count she is taking regular diet p.o. she has minimal abdominal pain and ready for discharge home. She will be discharged home on p.o. antibiotics ciprofloxacin 500 mg p.o. twice daily she will be given a follow-up appointment in 7 to 10 days after discharge Final diagnosis is perforated appendicitis. Physical Exam Vital Signs: Temp Pulse Resp BP Pulse Ox 98.1 F 108 H 16 123/85 99 03/25/19 23:31 03/25/19 23:31 03/25/19 23:31 03/25/19 23:31 03/25/19 23:31 Intake & Output 03/25/19 03/26/19 03/27/19 06:59 06:59 06:59 Intake Total 1430 957 Balance 1430 957 Weight 82.2 kg 80.6 kg Results Laboratory Results: WBC 6.9 10^3/uL (4.0-10.5) 03/26/19 06:33 RBC 4.51 10^6/uL (3.72-5.28) 03/26/19 06:33 Hgb 12.8 g/dL (12.0-15.5) 03/26/19 06:33 Hct 39.1 % (36.0-47.0) 03/26/19 06:33 MCV 87 fl (80-97) 03/26/19 06:33 MCH 28.5 pg (27.0-33.4) 03/26/19 06:33 MCHC 32.9 g/dL (32.0-36.0) 03/26/19 06:33 RDW 14.5 % (11.5-14.0) H 03/26/19 06:33 Plt Count 421 10^3/uL (150-450) 03/26/19 06:33 Lymph % (Auto) 40.8 % (13-45) 03/26/19 06:33 Lipscomb % (Auto) 13.4 % (3-13) H 03/26/19 06:33 Eos % (Auto) 2.5 % (0-6) 03/26/19 06:33 Baso % (Auto) 0.5 % (0-2) 03/26/19 06:33 Absolute Neuts (auto) 2.9 10^3/uL (1.7-8.2) 03/26/19 06:33 Absolute Lymphs (auto) 2.8 10^3/uL (0.5-4.7) 03/26/19 06:33 Absolute Monos (auto) 0.9 10^3/uL (0.1-1.4) 03/26/19 06:33 Absolute Eos (auto) 0.2 10^3/uL (0.0-0.6) 03/26/19 06:33 Absolute Basos (auto) 0.0 10^3/uL (0.0-0.2) 03/26/19 06:33 Total Counted 100 03/12/19 05:14 Seg Neutrophils % 42.8 % (42-78) 03/26/19 06:33 Seg Neuts % (Manual) 81 % (42-78) H 03/12/19 05:14 Lymphocytes % (Manual) 16 % (13-45) 03/12/19 05:14 Atypical Lymphs % 1 % (0) 03/12/19 05:14 Monocytes % (Manual) 2 % (3-13) L 03/12/19 05:14 Eosinophils % (Manual) 0 % (0-6) 03/12/19 05:14 Basophils % (Manual) 0 % (0-2) 03/12/19 05:14 Abs Neuts (Manual) 16.2 10^3/uL (1.7-8.2) H 03/12/19 05:14 Abs Lymphs (Manual) 3.4 10^3/uL (0.5-4.7) 03/12/19 05:14 Abs Monocytes (Manual) 0.4 10^3/uL (0.1-1.4) 03/12/19 05:14 Absolute Eos (Manual) 0.0 10^3/uL (0.0-0.6) 03/12/19 05:14 Abs Basophils (Manual) 0.0 10^3/uL (0.0-0.2) 03/12/19 05:14 Large Platelets PRESENT 03/12/19 05:14 Platelet Comment ADEQUATE 03/12/19 05:14 PT 17.3 SEC (11.4-15.4) H 03/22/19 09:06 INR 1.40 03/22/19 09:06 APTT 30.4 SEC (23.5-35.8) 03/22/19 09:06 Sodium 135.7 mmol/L (137-145) L 03/18/19 08:10 Potassium 4.5 mmol/L (3.6-5.0) 03/18/19 08:10 Chloride 102 mmol/L (98-107) 03/18/19 08:10 Carbon Dioxide 18 mmol/L (22-30) L 03/18/19 08:10 Anion Gap 16 (5-19) 03/18/19 08:10 BUN 6 mg/dL (7-20) L 03/18/19 08:10 Creatinine 0.55 mg/dL (0.52-1.25) 03/18/19 08:10 Est GFR ( Amer) > 60 (>60) 03/18/19 08:10 Est GFR (MDRD) Non-Af > 60 (>60) 03/18/19 08:10 Glucose 84 mg/dL (75-110) 03/18/19 08:10 Calcium 9.0 mg/dL (8.4-10.2) 03/18/19 08:10 Total Bilirubin 0.7 mg/dL (0.2-1.3) 03/12/19 05:14 Direct Bilirubin 0.3 mg/dL (0.0-0.4) 03/12/19 05:14 Neonat Total Bilirubin Not Reportable 03/12/19 05:14 Neonat Direct Bilirubin Not Reportable 03/12/19 05:14 Neonat Indirect Bili Not Reportable 03/12/19 05:14 AST 23 U/L (14-36) 03/12/19 05:14 ALT 16 U/L (<35) 03/12/19 05:14 Alkaline Phosphatase 97 U/L (38-126) 03/12/19 05:14 Total Protein 8.5 g/dL (6.3-8.2) H 03/12/19 05:14 Albumin 4.7 g/dL (3.5-5.0) 03/12/19 05:14 Lipase 69.3 U/L (23-300) 03/12/19 05:14 Urine Color BRAD 03/12/19 04:04 Urine Appearance TURBID 03/12/19 04:04 Urine pH 5.0 (5.0-9.0) 03/12/19 04:04 Ur Specific [place] 1.025 03/12/19 04:04 Urine Protein NEGATIVE mg/dL (NEGATIVE) 03/12/19 04:04 Urine Glucose (UA) NEGATIVE mg/dL (NEGATIVE) 03/12/19 04:04 Urine Ketones 80 mg/dL (NEGATIVE) H 03/12/19 04:04 Urine Blood NEGATIVE (NEGATIVE) 03/12/19 04:04 Urine Nitrite NEGATIVE (NEGATIVE) 03/12/19 04:04 Urine Bilirubin NEGATIVE (NEGATIVE) 03/12/19 04:04 Urine Urobilinogen 4.0 mg/dL (<2.0) H 03/12/19 04:04 Ur Leukocyte Esterase NEGATIVE (NEGATIVE) 03/12/19 04:04 Urine WBC (Auto) 4 /HPF 03/12/19 04:04 Urine Bacteria (Auto) 2+ /HPF 03/12/19 04:04 Squamous Epi Cells Auto 4 /HPF 03/12/19 04:04 Urine Mucus (Auto) MANY /LPF 03/12/19 04:04 Urine Ascorbic Acid NEGATIVE (NEGATIVE) 03/12/19 04:04 Stl C. Difficile GDH Ag NEGATIVE (NEGATIVE) 03/18/19 05:50 Stl C.difficile Tox A&B NEGATIVE (NEGATIVE) 03/18/19 05:50 Impressions: Abdomen/Pelvis CT 03/12/19 06:25 IMPRESSION: Findings compatible with acute appendicitis. No carleen perforation although appendix is markedly dilated (1.4 cm) with small amount of para appendiceal fluid. Pertinent positive or negative findings of the imaging study reported as a CRITICAL EXAM to PRATIMA BACH DO at08:22 on 03/12/2019. Category of Critical Exam: Acute appendicitis Abdomen/Pelvis CT 03/16/19 00:00 IMPRESSION: 1. CHANGES OF RECENT APPENDECTOMY. MILD POSTOPERATIVE STRANDING BUT NO FOCAL FLUID COLLECTION OR EVIDENCE OF LOCALIZED ABSCESS. THERE IS A SMALL AMOUNT OF FREE FLUID IN THE RIGHT SIDE OF THE PELVIS. 2. DIFFUSELY DILATED SMALL BOWEL. THE DISTAL SMALL BOWEL AND COLON ARE NOT DISTENDED. SOMEWHAT CONCERNING FOR OBSTRUCTION. A FOCAL OBSTRUCTING LESION IS NOT DEMONSTRATED. 3. NO OTHER SIGNIFICANT OR ACUTE PROCESS IN THE ABDOMEN OR PELVIS. Abdomen/Pelvis CT 03/21/19 00:00 IMPRESSION: 1. FLUID COLLECTION IN THE OPERATIVE SITE OF THE RIGHT LOWER QUADRANT. THIS MAY REPRESENT POSTOP SEROMA/RESOLVING HEMATOMA VERSUS ABSCESS. 2. PERSISTENT SMALL BOWEL DILATION CONCERNING FOR AT LEAST PARTIAL OBSTRUCTION. 3. NO OTHER SIGNIFICANT OR ACUTE FINDINGS IN THE ABDOMEN OR PELVIS. Retroperitoneal Abscess Drainage 03/22/19 00:00 IMPRESSION: CT GUIDED ASPIRATION OF THE RIGHT LOWER QUADRANT FLUID COLLECTION PERFORMED WITHOUT IMMEDIATE COMPLICATION. Abdomen/Pelvis CT 03/25/19 00:00 IMPRESSION: Resolving postsurgical changes right lower quadrant. No abscess. Mild residual ileus.
[2019-03-26 08:37] VITALS: BP 139/78
[2019-03-26] MEDS: IBUPROFEN 800 MG TABLET PO SCH (09:16)
== END 2019-03-26 09:34 | disposition home or self-care (01) | DRG 342 ==
LOC: ER 03:54 → INTOOBSV 08:38 → EH 08:38 → 4W 10:20 → OBSVTOIN 03-15 13:31 → 5 03-22 13:35 → 4W 03-22 13:54 → 5 03-22 17:47
PROVIDERS: ADMIT Surgery; ATTEND Surgery
PROC: 0DTJ4ZZ Resection of Appendix, Percutaneous Endoscopic Approach (ICD-10-PCS; principal; 2019-03-13)
PROC: 0W9H3ZX Drainage of Retroperitoneum, Percutaneous Approach, Diagnostic (ICD-10-PCS; 2019-03-22)
PROC: BW20ZZZ Computerized Tomography (CT Scan) of Abdomen (ICD-10-PCS; 2019-03-22)
DX: K35.30 Acute appendicitis with localized peritonitis, without perforation or gangrene (principal); K56.7 Ileus, unspecified
CPT/HCPCS: 10009; 36415; 49406; 74176; 74177; 80048; 80053; 81001; 83690; 840; 85025; 85610; 85730; 87040; 87070; 87075; 87077; 87186; 87205; 87324; 87449; 88304; 94799; 96361; 96374; 96375; 99285; G0378; J0131; J0330; J0692; J1100; J1170; J1885; J2060; J2250; J2270; J2405; J2550; J2704; J2710; J2765; J3010; J3480; J3490; J7030; S0028; S0119

== ENCOUNTER → 2019-05-18 | Outpatient (CLI) | payer OTHER ==
--- NOTE | 2019-05-18 09:26 | RADIOLOGY REPORT (SQ) ---
EXAM DESCRIPTION: CT ABD/PELVIS ORAL ONLY COMPLETED DATE/TIME: 05/18/2019 8:53 am REASON FOR STUDY: RLQ PAIN (R10.31) R10.31 RIGHT LOWER QUADRANT PAIN COMPARISON: 03/25/2019, 03/16/2019 TECHNIQUE: CT scan of the abdomen and pelvis performed without intravenous or oral contrast. Images reviewed with lung, soft tissue, and bone windows. Reconstructed coronal and sagittal MPR images revi ewed. All images stored on PACS. All CT scanners at this facility use dose modulation, iterative reconstruction, and/or weight based d osing when appropriate to reduce radiation dose to as low as reasonably achievable (ALARA). [facility]: Dose Right [facility]: CareDose [facility]: Dose Right [facility]: Teradose 4D [facility]: Smart Mgv RADIATION DOSE: CT Rad equipment meets quality standard of care and radiation dose reduction techniq ues were employed. CTDIvol: 7.9 mGy. DLP: 439 mGy-cm.mGy. LIMITATIONS: None. FINDINGS: LOWER CHEST: No significant findings. No nodules or infiltrates. NON-CONTRASTED LIVER, SPLEEN, ADRENALS: Evaluation limited by lack of IV contrast. No identified sign ificant masses. PANCREAS: No masses. No peripancreatic inflammatory changes. GALLBLADDER: No identified stones by CT criteria. No inflammatory changes to suggest cholecystitis. RIGHT KIDNEY AND URETER: No suspicious masses. Assessment limited by lack of IV contrast. No signif icant calcifications. No hydronephrosis or hydroureter. LEFT KIDNEY AND URETER: No suspicious masses. Assessment limited by lack of IV contrast. No signifi cant calcifications. No hydronephrosis or hydroureter. AORTA AND RETROPERITONEUM: No aneurysm. No retroperitoneal masses or adenopathy. BOWEL AND PERITONEAL CAVITY: No obvious masses or inflammatory changes. No free fluid. APPENDIX: Prior appendectomy. Small lymph nodes in the right lower quadrant. Persistent inflammator y changes along the right anterior abdominal wall no focal fluid collection. PELVIS, BLADDER, AND ABDOMINAL WALL:No abnormal masses. No free fluid. Bladder normal. BONES: No significant findings. OTHER: No other significant finding. IMPRESSION: Persistent adenopathy in the right lower quadrant and mesenteric inflammation adjacent t o the anterior abdominal wall best demonstrated on series 2 images 56 through 60. No drainable absce ss. COMMENT: Quality ID # [id number]: Final reports with documentation of one or more dose reduction techniques (e.g., Automated exposure control, adjustment of the mA and/or kV according to patient size, use of iterative reconstruction technique) TECHNICAL DOCUMENTATION: JOB ID: [id number] [employer]- All Rights Reserved Reading location - IP/workstation name: [email or web address]
== END ==
LOC: RAD 08:43
PROVIDERS: ATTEND Surgery
DX: R59.0 Localized enlarged lymph nodes (principal); R10.31 Right lower quadrant pain
CPT/HCPCS: 74176